=== PATIENT | male | born 1955 | race Two or more races ===

== ENCOUNTER 2017-12-10 11:30 | Outpatient (AMBR) | payer MEDICAID, SELFPAY ==
--- NOTE | 2017-11-26 10:11 | PTNOTE_ITS ---
PT OP Initial Eval Patient Information Visit Reasons: lumbago Medical Diagnosis: M54.41 Treatment Dx #1: LBP Start of Care: 11/26/17 Date of Onset: 3 yrs ago Initial Assessment Subjective Pt is 62 yr old croatian speaking male with Hx of LBP since lifting a floor milagro about 3 yrs ago. Pt reports pain site as the lateral L hip that radiates down the LE about 6/10 with pain meds. He is not working due to pain and is walking with walking stick limited distances from car to building. He had been using a walker that he could walk 1 block with 4 rest stops. He is walking better now after chiropractor care 2 months ago. PMH: DM, B astigmatism Imaging: X-rays Pt goals: to walk further Objective Trunk ArOM: B SB 19 with pain Extension: 20% with pain into glutes and lateral hips Flexion: 10 from floor with increased LBP and posterior thigh pain B rotation: full R SLR ROM: 65 deg with posterior knee neural tension and LBP. L SLR: 55 deg LE strength: DF: 3-/5 B hamstrings: 4/5 Quads 3+/5 Hip abd/add 4-/5 GELY's: lateral thigh pain B SLR: positive B TTP: moderate R paraspinals L2-5, PSIS L<R lumbar paraspinal atrophy B SLR: positive Assessment Pt presents with severe trunk ROM limitations with radiation to B LE's that limits squatting and bending tolerance. Pt has neural tension along sciatic pathway and has weakness along L4-5 myotome with very limited ankle DF ROM and strength along with diminished foot and ankle sensation B. Limited ankle ROM may also contribute to decreased balance reactions and dynamic gait deficits. These findings are consistent with lumbar disc irritation with LE radiculopathy along L4-5 distribution. Pt was taught HEP and given materials. Short Term and Health Care Law Specialist Goals 1. Ind with HEP 2. Improved B quad strength to 4/5 3. Pt will improve ambulatory distance to 1 block with assistive device Treatment Plan Pt has 2 visits authorized and will be scheduled for 2x a week. 1. Manual therapy 2. Therex 3. Modalities as indicated, moist heat, ice, estim, mechanical traction Frequency and Duration 2x a week for 6 weeks Certification Dates: 11/26/17 to 02/24/18 Office Procedures PT Procedures PT Date of Service: 11/26/17 OP PT Eval Mod Complex 30 minutes: Yes
--- NOTE | 2017-11-29 15:01 | PT.ODAYNRPT ---
PT Outpatient Daily Note Date of Service: November 29, 2017 OP Daily Note Visit Reasons: lumbago Outpatient Physical Therapy Treatment Date: 11/29/17 Subjective: About the same as time of evaluation Objective: See F/S for therex Mechanical traction L/S at 20lbs x7' Assessment: Good response to first Rx L/S stab therex and mechanical traction to reduce ssx Plan: Continue per POC Length of Time (minutes) of Treatment: 30 Minutes Office Procedures PT Procedures PT Date of Service: 11/26/17 OP PT Eval Mod Complex 30 minutes: Yes PT Procedures PT Date of Service: 11/29/17 Therapeutic Exercise 30 minutes: Yes
--- NOTE | 2017-12-03 14:21 | PT.ODAYNRPT ---
PT Outpatient Daily Note Date of Service: December 03, 2017 OP Daily Note Visit Reasons: lumbago Outpatient Physical Therapy Treatment Date: 12/03/17 Subjective: Less pain and better sleep since last visit like the nerves in his legs are stretched. Objective: See F/S for therex Mechanical traction L/S at 20lbs x7' Assessment: Good response to L/S stab therex and mechanical traction to reduce ssx Plan: Continue per POC Length of Time (minutes) of Treatment: 30 Minutes Office Procedures PT Procedures PT Date of Service: 11/26/17 OP PT Eval Mod Complex 30 minutes: Yes PT Procedures PT Date of Service: 11/29/17 Therapeutic Exercise 30 minutes: Yes PT Procedures PT Date of Service: 12/03/17 Therapeutic Exercise 30 minutes: Yes
--- NOTE | 2017-12-05 13:40 | PT.ODAYNRPT ---
PT Outpatient Daily Note Date of Service: December 05, 2017 OP Daily Note Visit Reasons: lumbago Outpatient Physical Therapy Treatment Date: 12/05/17 Subjective: Less pain and better sleep since last visit like the nerves in his legs are stretched. Objective: See F/S for therex Mechanical traction L/S at 20lbs x7' Assessment: Good response to L/S stab therex and mechanical traction to reduce ssx Plan: Continue per POC Length of Time (minutes) of Treatment: 30 Minutes Office Procedures PT Procedures PT Date of Service: 11/26/17 OP PT Eval Mod Complex 30 minutes: Yes PT Procedures PT Date of Service: 11/29/17 Therapeutic Exercise 30 minutes: Yes PT Procedures PT Date of Service: 12/03/17 Therapeutic Exercise 30 minutes: Yes PT Procedures PT Date of Service: 12/05/17 Therapeutic Exercise 30 minutes: Yes
--- NOTE | 2017-12-10 12:10 | PT.ODAYNRPT ---
PT Outpatient Daily Note Date of Service: December 10, 2017 OP Daily Note Visit Reasons: [facility] Outpatient Physical Therapy Treatment Date: 12/10/17 Subjective: The L foot drops when he picks up the foot Objective: See F/S for therex Mechanical traction L/S at 20lbs x7' Assessment: Good response to L/S stab therex and mechanical traction to reduce LBP but continued L foot drop limits dynamic mobility. Pt would benefit from continued therapy to work toward ambulatory goals. Plan: Request additional visits 2x a week for 4 weeks. Length of Time (minutes) of Treatment: 30 Minutes Office Procedures PT Procedures PT Date of Service: 11/26/17 OP PT Eval Mod Complex 30 minutes: Yes PT Procedures PT Date of Service: 11/29/17 Therapeutic Exercise 30 minutes: Yes PT Procedures PT Date of Service: 12/03/17 Therapeutic Exercise 30 minutes: Yes PT Procedures PT Date of Service: 12/05/17 Therapeutic Exercise 30 minutes: Yes PT Procedures PT Date of Service: 12/10/17 Therapeutic Exercise 30 minutes: Yes
--- NOTE | 2017-12-10 12:13 | PTNOTE_ITS ---
PT Outpatient Daily Note Date of Service: December 10, 2017 OP Daily Note Visit Reasons: [facility] Outpatient Physical Therapy Treatment Date: 12/10/17 Subjective: The L foot drops when he picks up the foot Objective: See F/S for therex Mechanical traction L/S at 20lbs x7' Assessment: Good response to L/S stab therex and mechanical traction to reduce LBP but continued L foot drop limits dynamic mobility. Pt would benefit from continued therapy to work toward ambulatory goals. Plan: Request additional visits 2x a week for 4 weeks. Length of Time (minutes) of Treatment: 30 Minutes Office Procedures PT Procedures PT Date of Service: 11/26/17 OP PT Eval Mod Complex 30 minutes: Yes PT Procedures PT Date of Service: 11/29/17 Therapeutic Exercise 30 minutes: Yes PT Procedures PT Date of Service: 12/03/17 Therapeutic Exercise 30 minutes: Yes PT Procedures PT Date of Service: 12/05/17 Therapeutic Exercise 30 minutes: Yes PT Procedures PT Date of Service: 12/10/17 Therapeutic Exercise 30 minutes: Yes
== END 2017-12-21 23:59 | disposition home or self-care (01) ==
PROVIDERS: PCP Physician Assistant; Referring Provider Physician Assistant
DX: I10 Essential (primary) hypertension (principal)
CPT/HCPCS: 97110; 97162

== ENCOUNTER 2024-06-04 07:48 | Emergency (ER) | payer MEDICARE, MEDICAID, SELFPAY ==
[2024-06-04] VITALS (7 sets, daily range): BP systolic 93–132; BP diastolic 70–93; PULSE 61–88; RESP 12–18; TEMP 36.4–36.8; O2SAT 95–99; BMI 27.4
--- NOTE | 2024-06-04 08:24 | EKG_ITS ---
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
--- NOTE | 2024-06-04 08:24 | XR_ITS ---
Examination: AP chest single view TECHNIQUE: AP portable upright chest single view Exam date and time: June 04, 2024 at 0828 hours INDICATIONS: Acute chest pain today FINDINGS: Mild prominence of ventricle Mild to moderate elevation right hemidiaphragm No lobar pneumonia or pulmonary edema Prominent osteopenia IMPRESSION: No lobar pneumonia or pulmonary edema
[2024-06-04 08:37] LABS: Basophils % (Auto) 1 % (0-2.5); Eosinophils # (Auto) 0.1 Thou/mm3 (0.0-0.5); Eosinophils % (Auto) 2 % (0-10); Hemoglobin 13.4 g/dL (13.5-16.0); Immature Granulocytes % (Auto) 0 % (0-0); Immature Granulocytes Auto 0.02 Thou/mm3 (0.00-0.00); Lymphocytes # (Auto) 1.6 Thou/mm3 (1.0-4.8); Lymphocytes % (Auto) 27 % (10-50); Mean Corpuscular HGB Conc 33.5 g/dl (31.0-37.0); Mean Corpuscular Hemoglobin 31.5 pg (25.0-35.0); Mean Corpuscular Volume 94 fL (80-100); Monocytes # (Auto) 0.4 Thou/mm3 (0.0-0.8); Monocytes % (Auto) 7 % (0-12); Neutrophils # (Auto) 3.7 Thou/mm3 (1.8-7.7); Neutrophils % (Auto) 63 % (37-80); Nucleated Red Blood Cell % 0 /100 WBC (0); Platelet Count 156 Thou/mm3 (140-440); Red Blood Count 4.26 Miln/mm3 (4.50-5.90); White Blood Count 5.8 Thou/mm3 (3.8-10.6)
--- NOTE | 2024-06-04 08:44 | PD.EDWEAK ---
ED Weakness RME/HPI General Chief complaint: Weakness Stated complaint: Weakness Time Seen by Provider: 06/04/24 08:33 Arrival date/time: 06/04/24 07:48 RME / HPI RME / HPI Narrative: DR. CHIANG MAIN ED EVALUATION: 68 year old male with past medical history significant for intracranial hemorrhage 2021, hypertension, type 2 diabetes, BPH, high cholesterol, on Plavix, renal disease secondary to dehydration presents to the Emergency Department BIBA with complaint of generalized weakness today. Symptoms are mild to moderate. Related Data Home Medications ?Medication ?Instructions ?Recorded ?Confirmed duloxetine 60 mg capsule,delayed 60 mg PO QDAY 06/14/19 01/28/23 release aspirin 81 mg tablet,delayed 81 mg PO QDAY 05/25/21 01/28/23 release gabapentin 300 mg capsule 300 mg PO BID 10/19/21 01/28/23 hydralazine 50 mg tablet 50 mg PO QDAY 10/19/21 01/28/23 tamsulosin 0.4 mg capsule 0.4 mg PO QDAY 10/19/21 01/28/23 finerenone 10 mg tablet (Kerendia) 10 mg PO QDAY 05/12/22 01/28/23 insulin regular human 100 unit/mL See Rx Instructions .Route .COMPLEX 05/12/22 01/28/23 (3 mL) subcutaneous pen (Novolin R FlexPen) insulin glargine 100 unit/mL (3 30 unit subcut HS 05/30/22 01/28/23 mL) subcutaneous pen (Basaglar KwikPen U-100 Insulin) pen needle, diabetic 31 gauge x 05/30/22 05/30/22 3/16 (BD Ultra-Fine Mini Pen Needle) dapagliflozin propanediol 10 mg 10 mg PO QDAY 01/28/23 01/28/23 tablet (Farxiga) sodium polystyrene sulfonate 15 g PO QDAY 01/28/23 01/28/23 vitamin B complex-vitamin C-folic 1 tab PO QDAY 01/28/23 01/28/23 acid 0.8 mg tablet (Nephro-Siobhan) Previous Rx's ?Medication ?Instructions ?Recorded amlodipine 10 mg tablet 10 mg PO QDAY #30 tabs 10/21/21 lisinopril 40 mg tablet 40 mg PO QDAY #30 tabs 10/21/21 ondansetron 4 mg disintegrating 4 mg PO Q8H PRN nausea and 01/18/24 tablet vomiting #10 tabs cephalexin 500 mg capsule 500 mg PO TID #21 caps 06/04/24 oseltamivir 75 mg capsule (Tamiflu) 75 mg PO BID 5 days #10 caps 06/04/24 Allergies Allergy/AdvReac Type Severity Reaction Status Date / Time No Known Allergies Allergy Verified 06/04/24 08:11 Review of Systems Review of Systems Systems Reviewed: All systems reviewed, normal except as documented Narrative Review of Systems: GEN: No fever, no chills, no weight loss EYES: No discharge, no visual changes, no pain HEENT: No ear pain, no congestion, no sore throat PULM: No shortness of breath, no cough, no congestion CV: No chest pain, no dyspnea on exertion, no palpitations GI: No nausea, no vomiting, no diarrhea, no pain, no constipation : No frequency, no urgency and no dysuria MUSC/SKEL: No joint pain, no back pain SKIN: No rash PSYCH: No hallucinations, no depression HEME/LYMPH: No easy bleeding or bruising tendencies NEURO: + generalized weakness, no headache Past Medical History Past Medical History NEUROLOGIC: Positive Neurological Disorders and Cerebrovascular Accident CARDIAC: Positive Cardiac Disorders, Hypercholesterolemia and Hypertension RESPIRATORY: Positive Sleep Apnea GASTROINTESTINAL: Positive Gastrointestinal Disorders GENITOURINARY: Positive Genitourinary Disorders, Renal Disease and Benign Prostatic Hyperplasia MUSCULOSKELETAL: Positive Musculoskeletal Disorders and Fractures ENDOCRINE: Positive Endocrine Disorders and Diabetes Mellitus Type 2 OTHER HISTORY: Positive Hospitalization Family History FAMILY HISTORY: Positive Family Cancer Social History SMOKING STATUS: Never smoker SUBSTANCE USE: does not use ALCOHOL: Never ED Exam Narrative Physical exam: GENERAL APPEARANCE: alert and oriented x 4, well-developed, well-nourished, no acute distress VITALS: All vitals were reviewed and the pulse ox is 97% on room air, which is normal according to my interpretation. HEENT: Normocephalic, atraumatic; pupils equal, round, reactive to light; EOMI; mucous membranes pink, moist; oropharynx clear NECK: Supple LUNGS: CTABL; no wheezes, no rales, no rhonchi HEART: Regular rate, regular rhythm; normal S1, S2; no murmurs ABDOMEN: non distended; normal BS; soft, no tenderness, no guarding, no rebound; no masses, no organomegaly, no hernia BACK: no CVA tenderness EXTREMITIES: atraumatic; no edema NEUROLOGIC: awake; alert and oriented x4; cranial nerves II-XII grossly intact; no focal sensory or motor deficits PSYCHIATRIC: appropriate mood and affect SKIN: warm, dry, normal color; no rashes Course Quality Measures none Orders Category Date Time Status Bedside Blood Glucose NOW Care 06/04/24 08:25 Completed Bedside COVID-19 Antigen Test NOW Care 06/04/24 09:18 Completed Bedside Influenza A&B Antigen Test NOW Care 06/04/24 09:18 Completed Education Rn NOW Care 06/04/24 08:24 Completed EKG (ED ONLY) *Do not use* NOW Care 06/04/24 08:24 Completed EKG (ED Only) Stat Exams 06/04/24 08:24 Draft XR chest 1V portable Stat Exams 06/04/24 08:24 Completed B-Type Natriuretic Peptide Stat Lab 06/04/24 08:25 Completed CBC Stat Lab 06/04/24 08:25 Completed Comprehensive Metabolic Panel Stat Lab 06/04/24 08:25 Completed Lipase Stat Lab 06/04/24 08:25 Completed Magnesium Stat Lab 06/04/24 08:25 Completed Partial Thromboplastin Time Stat Lab 06/04/24 08:25 Completed Prothrombin Time with INR Stat Lab 06/04/24 08:25 Completed Troponin I Stat Lab 06/04/24 08:25 Completed UA, C/S IF [Urinalysis, C/S if Indicated] Stat Lab 06/04/24 11:22 Completed Urine Culture Stat Lab 06/04/24 11:22 Received Oseltamivir [Tamiflu] Med 06/04/24 12:38 Discontinued 75 mg PO X1 ONE Sodium Chloride 0.9% 1000 ml [Ns] 1,000 ml Med 06/04/24 09:19 Discontinued IV 999 mls/hr Trimethoprim/Sulfa 160/800 Ds [Bactrim Ds] Med 06/04/24 12:32 Discontinued 1 tab PO X1 ONE cefTRIAXone/D5w 1gm IV premix [Rocephin/D5w 1gm IV Med 06/04/24 13:33 Discontinued premix] 50 ml IV X1 cephALEXin [Keflex] Med 06/04/24 12:39 Discontinued 500 mg PO X1 ONE Vital Signs Vital signs: Vital Signs Temperature 98.3 F 06/04/24 07:51 Pulse Rate 88 06/04/24 07:51 Respiratory Rate 18 06/04/24 07:51 Blood Pressure 130/93 H 06/04/24 07:51 Pulse Oximetry (%) 98 06/04/24 07:51 Oxygen Delivery Method Room Air 06/04/24 07:51 Weakness MDM Narrative MDM Narrative:: IMasha, am scribing for and in the presence of Dr. Chiang. Patient data External records reviewed:: [facility] previous records (Reviewed last ED visit dated 02/10/24 discharged with the following: Atypical chest pain) and EMS form Clinical information provided by:: patient and EMS Social determinants that could affect healthcare access:: none Patient has the following chronic illnesses:: Intracranial hemorrhage 2021, hypertension, type 2 diabetes, BPH, high cholesterol, on Plavix, renal disease secondary to dehydration How is presenting disease/condition affected by chronic disease/condition?: exacerbated by Evaluation data The following diagnostics were reviewed and interpreted by me:: lab results, radiology exam(s) and EKG tracing(s) (EKG#1: EKG at 0849 hours. Interpreted by me: sinus rhythm, rate 79, left axis deviation, incomplete right bundle branch block) Lab and/or radiology exams considered but not ordered:: none Interpretation Summary: Procedure(s): XR chest 1V portable Accession Number(s): [id number] cc: Karlo Allen MD; Sonia Chiang MD~ Examination: AP chest single view TECHNIQUE: AP portable upright chest single view Exam date and time: June 04, 2024 at 0828 hours INDICATIONS: Acute chest pain today FINDINGS: Mild prominence of ventricle Mild to moderate elevation right hemidiaphragm No lobar pneumonia or pulmonary edema Prominent osteopenia IMPRESSION: No lobar pneumonia or pulmonary edema Dictated By: Karlo Allen MD Medications / Prescriptions Medications or Prescriptions considered but not ordered:: none Medication administrations:: Medication Administration History Discontinued Medications Cephalexin HCl (Cephalexin 250 Mg Capsule) 500 mg PO X1 ONE Stop: 06/04/24 12:40 Last Admin: 06/04/24 13:33 Dose: Not Given Documented By: TANYA Non-Admin Reason: Patient Refused Sodium Chloride (Ns) 1,000 mls @ 999 mls/hr IV .Q1H1M ONE Stop: 06/04/24 10:19 Last Infusion: 06/04/24 11:33 Dose: Infused Documented By: Admin: 06/04/24 10:15 Dose: 999 mls/hr Documented By: TANYA Ceftriaxone Sodium/Dextrose (Rocephin/D5w 1gm Iv Premix) 50 mls @ 100 mls/hr IV X1 ONE Stop: 06/04/24 14:02 Last Infusion: 06/04/24 14:15 Dose: Infused Documented By: Admin: 06/04/24 13:42 Dose: 100 mls/hr Documented By: TANYA Oseltamivir Phosphate (Oseltamivir 75 Mg Capsule) 75 mg PO X1 ONE Stop: 06/04/24 12:39 Last Admin: 06/04/24 13:33 Dose: Not Given Documented By: TANYA Non-Admin Reason: Patient Refused Trimethoprim/Sulfamethoxazole (Trimethoprim/Sulfa 160/800 Ds Tablet) 1 tab PO X1 ONE Stop: 06/04/24 12:33 Last Admin: 06/04/24 13:04 Dose: Not Given Documented By: TANYA Non-Admin Reason: Cancelled by Provider see above Consultations Consultation(s) initiated? (list below): No Diagnosis Weakness Differential Diagnosis: acute myocardial infarction, anemia, dehydration and other (renal disease, electrolyte imbalance) Most likely diagnosis given after review of the tests above:: UTI Influenza A Admission Indicated Admission indicated?: not indicated Admission Request Was there a request for admission?: No Disposition Plan Disposition Plan: Discharge Discharge Attestation Discharge Attestation: The patient and all family members were given an opportunity to ask questions and understood the discharge instructions. Discharge instructions specifically effects, indications for sooner follow up or return to the emergency department, and the expected course of current diagnosis. Patient condition: Stable Discharge Plan Plan Patient Disposition: HOME (Self Care) Patient condition on transfer: Stable Prescriptions/Referrals Prescriptions/Med Rec: New cephalexin 500 mg capsule 500 mg PO TID Qty: 21 0RF oseltamivir [Tamiflu] 75 mg capsule 75 mg PO BID 5 Days Qty: 10 0RF No Action duloxetine 60 mg Capsule,Delayed Release(Dr/Ec) 60 mg PO QDAY aspirin 81 mg Tablet,Delayed Release (Dr/Ec) 81 mg PO QDAY tamsulosin 0.4 mg capsule 0.4 mg PO QDAY gabapentin 300 mg capsule 300 mg PO BID hydralazine 50 mg tablet 50 mg PO QDAY amlodipine 10 mg tablet 10 mg PO QDAY Qty: 30 0RF lisinopril 40 mg tablet 40 mg PO QDAY Qty: 30 0RF Nephro-Siobhan 0.8 mg tablet 1 tab PO QDAY Patient Comments: TOME MARINA TABLETA TODOS LOS D Farxiga 10 mg tablet 10 mg PO QDAY sodium polystyrene sulfonate Powder 15 g PO QDAY Patient Comments: TOME 15 GM POR V A ORAL TODOS LOS D ondansetron 4 mg tablet,disintegrating 4 mg PO Q8H PRN (Reason: nausea and vomiting) Qty: 10 0RF Kerendia 10 mg Tablet 10 mg PO QDAY Novolin R FlexPen 100 unit/mL (3 mL) Insulin Pen See Rx Instructions .ROUTE .COMPLEX Rx Instructions: per sliding scale. insulin glargine [Basaglar KwikPen U-100 Insulin] 100 unit/mL (3 mL) insulin pen 30 unit SUBCUT HS Patient Comments: INJECTE 30 UNIDADES SUBCUTANEOUS DIARIO [employer] (DME) pen needle, diabetic [BD Ultra-Fine Mini Pen Needle] 31 gauge x 3/16 needle Patient Comments: USE 3 TIMES A DAY Referrals: Leesa Leyva, HORIZONTAL [employer]ING M[employer] OPERATOR [Primary Care Provider] - In 1 week Problem List Clinical Impression: UTI (urinary tract infection), Influenza A Patient/Caregiver Discharge Instructions Education Materials: Urinary Tract Infections in Men, ED Influenza (Adult) Print Language: Irish Stand Alone Forms: Julianna Award Info., Patient Portal Info Letter
[2024-06-04 08:52] LABS: Partial Thromboplastin Time 26.8 Seconds (22.0-36.0); Prothrombin Time 10.7 Seconds (9.0-12.2)
[2024-06-04 08:55] LABS: B-Type Natriuretic Peptide < 20 pg/mL (0-100)
[2024-06-04 08:58] LABS: Alanine Aminotransferase 19 U/L (10-49); Albumin/Globulin Ratio 1.4 (1.2-2.2); Alkaline Phosphatase 68 U/L (46-116); Anion Gap 3 (7-16); Aspartate Amino Transferase 21 U/L (0-34); BUN/Creatinine Ratio 19 Ratio (12-20); Bilirubin,Total 0.4 mg/dL (0.3-1.2); Blood Urea Nitrogen 47 mg/dL (9-23); Calcium 9.2 mg/dL (8.3-10.6); Calcium (Corrected) 9.2 mg/dL (8.5-10.1); Carbon Dioxide 23.3 mMol/L (20.0-31.0); Chloride 112 mMol/L (98-107); Creatinine (Component) 2.5 mg/dL (0.6-1.3); Estimated Creatinine Clearance 28.4 mL/min (>60); Globulin 2.8 gm/dL (2.3-3.5); Glucose 255 mg/dL (74-106); Lipase 53 U/L (12-53); Magnesium 2.6 mg/dL (1.6-2.6); Osmolality,Calculated 296 (275-295); Potassium 5.2 mMol/L (3.4-5.1); Sodium 138 mMol/L (136-145); Total Protein 6.8 gm/dL (5.7-8.2); Troponin I < 0.020 ng/mL (0.0-0.045); eGFR 28 See Note
[2024-06-04] MEDS: SODIUM CHLORIDE 0.9% 1000 ML 1,000 ML 999 ML IV (10:15)
[2024-06-04 11:26] LABS: Collection Type, Urine Clean Catch
[2024-06-04 11:56] LABS: Bilirubin,Urine Negative (Negative); Blood,Urine 1+ (Negative); Budding Yeast,Urine Present; Color,Urine Yellow (Lt Yel-Yel); Glucose, Urine 4+ (Negative); Hyaline Casts,Urine < 1 /hpf (0-1); Ketones,Urine Negative (Negative); Leukocyte Esterase,Urine Positive (Negative); Nitrite,Urine Negative (Negative); PH,Urine 5.5 (5.0-7.0); Protein,Urine 2+ (Neg - Trace); RBC,Urine 8 /hpf (0-3); Specific Gravity,Urine 1.015 (1.001-1.035); Squamous Epithelial Cell,Urine 1 /hpf (0-5); Urobilinogen,Urine Negative mg/dL (0.0-1.0); WBC,Urine 454 /hpf (0-5)
[2024-06-04 11:57] LABS: Clarity,Urine Turbid (Clear/Hazy); Culture Indicated,Urine Yes
[2024-06-04] MEDS: cefTRIAXone/D5w 1gm IV premix 50 ML IV (13:42)
== END 2024-06-04 14:56 | disposition home or self-care (01) ==
PROVIDERS: Emergency Provider Emergency Medicine; PCP Nurse Practitioner Family
DX: N39.0 Urinary tract infection, site not specified (principal); J10.1 Influenza due to other identified influenza virus with other respiratory manifestations; E11.9 Type 2 diabetes mellitus without complications; I10 Essential (primary) hypertension; N40.0 Benign prostatic hyperplasia without lower urinary tract symptoms
CPT/HCPCS: 36415; 71045; 80053; 81001; 83690; 83735; 83880; 84484; 85025; 85610; 85730; 87086; 87400; 87811; 93005; 96361; 96365; 99284; J0696; J7030

== ENCOUNTER 2024-09-25 08:28 | Emergency (ER) | payer MEDICARE, MEDICAID, SELFPAY ==
[2024-09-25 08:30] VITALS: BP 156/81; PULSE 87; RESP 19; TEMP 36.7; O2SAT 95
[2024-09-25 08:31] VITALS: BMI 29.1
[2024-09-25 08:38] VITALS: BMI 24.3
--- NOTE | 2024-09-25 08:38 | PC.NURSE ---
PER MEDIC, STATED PT NOT ACTING RIGHT. PT ALERT/ORIENTED AND C/O FEELING TIRED AFTER GETTING HOME FROM [place] YESTERDAY.
--- NOTE | 2024-09-25 08:44 | EKG_ITS ---
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
--- NOTE | 2024-09-25 08:44 | PD.EDADULT ---
ED General RME/HPI General Chief complaint: General Adult/Misc Complain Stated complaint: TIRED Time Seen by Provider: 09/25/24 08:39 Arrival date/time: 09/25/24 08:28 RME / HPI RME / HPI narrative: DR. KENDRICK MAIN ED EVALUATION: 69 year old male presents to the Emergency Department [facility] with complaint of altered mental status per . Per EMS, states that he was not acting right and not answering her right; insisted the patient come in according to EMS. Patient himself states he feels tired but otherwise he is good. Per EMS, patient is oriented, responding well, and answering all questions to them. Per EMS, BP was 170/84 and blood glucose was 232. 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 Hypertension and hyperlipidemia. Social Hx: No tobacco, alcohol, or substance use. Related Data Home Medications ?Medication ?Instructions ?Recorded ?Confirmed duloxetine 60 mg capsule,delayed 60 mg PO QDAY 06/14/19 01/28/23 release aspirin 81 mg tablet,delayed 81 mg PO QDAY 05/25/21 01/28/23 release gabapentin 300 mg capsule 300 mg PO BID 10/19/21 01/28/23 hydralazine 50 mg tablet 50 mg PO QDAY 10/19/21 01/28/23 tamsulosin 0.4 mg capsule 0.4 mg PO QDAY 10/19/21 01/28/23 finerenone 10 mg tablet (Kerendia) 10 mg PO QDAY 05/12/22 01/28/23 insulin regular human 100 unit/mL See Rx Instructions .Route .COMPLEX 05/12/22 01/28/23 (3 mL) subcutaneous pen (Novolin R FlexPen) insulin glargine 100 unit/mL (3 30 unit subcut HS 05/30/22 01/28/23 mL) subcutaneous pen (Basaglar KwikPen U-100 Insulin) pen needle, diabetic 31 gauge x 05/30/22 05/30/2207/06 (BD Ultra-Fine Mini Pen Needle) dapagliflozin propanediol 10 mg 10 mg PO QDAY 01/28/23 01/28/23 tablet (Farxiga) sodium polystyrene sulfonate 15 g PO QDAY 01/28/23 01/28/23 vitamin B complex-vitamin C-folic 1 tab PO QDAY 01/28/23 01/28/23 acid 0.8 mg tablet (Nephro-Siobhan) Previous Rx's ?Medication ?Instructions ?Recorded amlodipine 10 mg tablet 10 mg PO QDAY #30 tabs 10/21/21 lisinopril 40 mg tablet 40 mg PO QDAY #30 tabs 10/21/21 ondansetron 4 mg disintegrating 4 mg PO Q8H PRN nausea and 01/18/24 tablet vomiting #10 tabs cephalexin 500 mg capsule 500 mg PO TID #21 caps 06/04/24 Allergies Allergy/AdvReac Type Severity Reaction Status Date / Time No Known Allergies Allergy Verified 09/25/24 08:47 Review of Systems Review of Systems Systems Reviewed: All systems reviewed, normal except as documented Past Medical History Past Medical History NEUROLOGIC: Positive Neurological Disorders and Cerebrovascular Accident (LEFT SIDE WEAKNESS) CARDIAC: Positive Cardiac Disorders, Myocardial Infarction, Hypercholesterolemia and Hypertension RESPIRATORY: Positive Sleep Apnea GASTROINTESTINAL: Positive Gastrointestinal Disorders GENITOURINARY: Positive Genitourinary Disorders, Renal Disease and Benign Prostatic Hyperplasia MUSCULOSKELETAL: Positive Musculoskeletal Disorders and Fractures ENDOCRINE: Positive Endocrine Disorders and Diabetes Mellitus Type 2 OTHER HISTORY: Positive Hospitalization and Anesthesia Reactions Family History FAMILY HISTORY: Positive Family Cancer Social History SMOKING STATUS: Never smoker SUBSTANCE USE: does not use ALCOHOL: Never ED Exam Narrative Physical exam: GENERAL APPEARANCE: AxOx4, generally well-appearing, no acute distress. HEENT: NC, AT. MMM. EOMI, clear conjunctiva, oropharynx clear. NECK: Supple without lymphadenopathy. No stiffness or restricted ROM. HEART: Normal rate and regular rhythm, normal S1/S1, no m/r/g LUNGS: CTAB, moving air well. No crackles or wheezes are heard. ABDOMEN: Soft, nontender, nondistended with good bowel sounds heard. BACK: No midline C/T/L spine pain or deformity, No CVAT, no obvious deformity. EXTREMITIES: Without cyanosis, clubbing or edema. MUSCULOSKELETAL: FROM of all major joints, no chest tenderness NEUROLOGICAL: Grossly nonfocal. Alert and oriented, moving all 4 extremities. Mild slurred speech from old stroke. Skin: Warm and dry without any rash. Course Quality Measures none Orders Category Date Time Status EKG (ED ONLY) *Do not use* NOW Care 09/25/24 08:[address] head/brain wo con Stat Exams 09/25/24 08:44 Completed EKG (ED Only) Stat Exams 09/25/24 08:44 Draft CBC Stat Lab 09/25/24 09:08 Completed CMP [Comprehensive Metabolic Panel] Stat Lab 09/25/24 09:08 Completed Urinalysis Stat Lab 09/25/24 10:29 Completed Vital Signs Vital signs: Vital Signs Temperature 98.1 F 09/25/24 08:30 Pulse Rate 87 09/25/24 08:30 Respiratory Rate 19 09/25/24 08:30 Blood Pressure 156/81 H 09/25/24 08:30 Pulse Oximetry (%) 95 09/25/24 08:30 Oxygen Delivery Method CPAP 09/25/24 08:30 Discharge Plan Plan Patient Disposition: HOME (Self Care) Prescriptions/Referrals Prescriptions/Med Rec: No Action duloxetine 60 mg Capsule,Delayed Release(Dr/Ec) 60 mg PO QDAY aspirin 81 mg Tablet,Delayed Release (Dr/Ec) 81 mg PO QDAY tamsulosin 0.4 mg capsule 0.4 mg PO QDAY gabapentin 300 mg capsule 300 mg PO BID hydralazine 50 mg tablet 50 mg PO QDAY amlodipine 10 mg tablet 10 mg PO QDAY Qty: 30 0RF lisinopril 40 mg tablet 40 mg PO QDAY Qty: 30 0RF Nephro-Siobhan 0.8 mg tablet 1 tab PO QDAY Patient Comments: TOME MAGDIEL TABLETA TODOS LOS D Farxiga 10 mg tablet 10 mg PO QDAY sodium polystyrene sulfonate Powder 15 g PO QDAY Patient Comments: TOME 15 GM POR V A ORAL TODOS LOS D ondansetron 4 mg tablet,disintegrating 4 mg PO Q8H PRN (Reason: nausea and vomiting) Qty: 10 0RF cephalexin 500 mg capsule 500 mg PO TID Qty: 21 0RF Kerendia 10 mg Tablet 10 mg PO QDAY Novolin R FlexPen 100 unit/mL (3 mL) Insulin Pen See Rx Instructions .ROUTE .COMPLEX Rx Instructions: per sliding scale. insulin glargine [Basaglar KwikPen U-100 Insulin] 100 unit/mL (3 mL) insulin pen 30 unit SUBCUT HS Patient Comments: INJECTE 30 UNIDADES SUBCUTANEOUS DIARIO AL ACOSTAR (DME) pen needle, diabetic [BD Ultra-Fine Mini Pen Needle] 31 gauge x 3/16 needle Patient Comments: USE 3 TIMES A DAY Referrals: Leesa Leyva NP [Primary Care Provider] - In 1 week Problem List Clinical Impression: Dehydration, Chronic renal disease Patient/Caregiver Discharge Instructions Education Materials: ED Chronic Kidney Disease (CKD), ED Dehydration (Adult) Additional Instructions: Acuda a magdiel linda de seguimiento con hill m?dico de cabecera en brianne o dos d?as para magdiel nueva evaluaci?n. Puede regresar a urgencias antes si los s?ntomas empeoran o si nota alg?n problema nuevo que le preocupe. Print Language: Citizen Of [place] Stand Alone Forms: Julianna Award Info., Patient Portal Info Letter MDM Narrative MDM hospital course: Masha Angeles am scribing for and in the presence of Dr. Kendrick. 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 Hypertension and hyperlipidemia. EKG Interpretation EKG #1: Date/time of EK09/25/24 0847 hours EKG interpretation: sinus rhythm, rate 80, normal intervals, normal axis, no acute ST-T wave changes. Imaging Radiology reports / interpretation(s): Procedure(s): CT head/brain wo con Accession Number(s): [id number] cc: Lisandro Kendrick MD; Karlo Allen MD; Leesa Leyva NP~ Examination: CT brain head without contrast. 2-D sagittal coronal reconstructions Date and time of exam:September 25, 2024 0853 hours INDICATIONS: Altered mental status today COMPARISON: 01/18/2024 CTDI: vol (mGy):53.8 DLP: (mGycm):1097 Technique: Multiple CT axial sections of the brain have been obtained, 5 mm slice thickness. Contrast has not been administered. 2-D sagittal, coronal reconstructions have been obtained Low dose protocols were performed. One or more of the following dose reduction techniques were used; automated exposure control, adjustment of the mA and/or KV according to patient size, use of iterative reconstruction technique. Findings: No significant ventricular enlargement. Old infarct left basal ganglia Intra-axial or extra-axial hemorrhage density is not seen. No mass effect or midline shift Basal cisterns are not remarkable. Fourth ventricle is midline. Cranial vault intact. Impression: Negative for acute hemorrhage, mass effect or midline shift Advise clinical correlation follow-up accordingly Dictated By: Karlo Allen MD Diagnosis Differential diagnosis: TIA, CVA, dehydration Most likely dx, and/or detailed dx discussion: Dehydration Chronic renal disease Dispositon Disposition: Discharge Home
[2024-09-25 09:03] VITALS: BP 128/74; PULSE 78; RESP 14; TEMP 36.7; O2SAT 97; BMI 26.4
[2024-09-25 09:26] LABS: Basophils # (Auto) 0.1 Thou/mm3 (0.0-0.2); Basophils % (Auto) 1 % (0-2.5); Eosinophils # (Auto) 0.2 Thou/mm3 (0.0-0.5); Eosinophils % (Auto) 2 % (0-10); Hematocrit 40.1 % (41.0-53.0); Hemoglobin 13.7 g/dL (13.5-16.0); Immature Granulocytes % (Auto) 0 % (0-0); Immature Granulocytes Auto 0.04 Thou/mm3 (0.00-0.00); Lymphocytes # (Auto) 1.8 Thou/mm3 (1.0-4.8); Lymphocytes % (Auto) 19 % (10-50); Mean Corpuscular HGB Conc 34.2 g/dl (31.0-37.0); Mean Corpuscular Hemoglobin 31.5 pg (25.0-35.0); Mean Corpuscular Volume 92 fL (80-100); Monocytes # (Auto) 0.6 Thou/mm3 (0.0-0.8); Monocytes % (Auto) 6 % (0-12); Neutrophils # (Auto) 6.9 Thou/mm3 (1.8-7.7); Neutrophils % (Auto) 73 % (37-80); Nucleated Red Blood Cell % 0 /100 WBC (0); Platelet Count 146 Thou/mm3 (140-440); RDW Standard Deviation 44.5 fL (35.1-43.9); Red Blood Count 4.35 Miln/mm3 (4.50-5.90); White Blood Count 9.6 Thou/mm3 (3.8-10.6)
[2024-09-25 09:37] LABS: Alanine Aminotransferase 32 U/L (10-49); Albumin, Serum 3.7 gm/dL (3.4-4.8); Albumin/Globulin Ratio 1.6 (1.2-2.2); Alkaline Phosphatase 68 U/L (46-116); Anion Gap 6 (7-16); Aspartate Amino Transferase 25 U/L (0-34); BUN/Creatinine Ratio 16 Ratio (12-20); Bilirubin,Total 0.3 mg/dL (0.3-1.2); Blood Urea Nitrogen 46 mg/dL (9-23); Calcium (Corrected) 9.2 mg/dL (8.5-10.1); Carbon Dioxide 27.6 mMol/L (20.0-31.0); Chloride 108 mMol/L (98-107); Creatinine (Component) 2.9 mg/dL (0.6-1.3); Estimated Creatinine Clearance 22.3 mL/min (>60); Globulin 2.3 gm/dL (2.3-3.5); Glucose 221 mg/dL (74-106); Osmolality,Calculated 302 (275-295); Potassium 5.4 mMol/L (3.4-5.1); Sodium 142 mMol/L (136-145); eGFR 23 See Note
--- NOTE | 2024-09-25 10:15 | PC.NURSE ---
PT HAD SMALL BM; PT'S BM LOOSE IN BROWN AND LOOSE. PT GIVEN PERINEAL CARE WITH WARM BATH CLOTHS & PLACED IN NEW CLEAN BRIEFS AT THIS TIME.
[2024-09-25 10:39] LABS: Collection Type, Urine Clean Catch; RBC,Urine 0 /hpf (0-3); Squamous Epithelial Cell,Urine 0 /hpf (0-5); WBC,Urine 0 /hpf (0-5)
[2024-09-25 10:55] LABS: Bilirubin,Urine Negative (Negative); Blood,Urine 1+ (Negative); Clarity,Urine Clear (Clear/Hazy); Color,Urine Lt Yellow (Lt Yel-Yel); Glucose, Urine 3+ (Negative); Ketones,Urine Negative (Negative); Leukocyte Esterase,Urine Negative (Negative); Nitrite,Urine Negative (Negative); Protein,Urine 3+ (Neg - Trace); Specific Gravity,Urine 1.015 (1.001-1.035); Urobilinogen,Urine 0.2 mg/dL (0.0-1.0)
[2024-09-25 11:00] LABS: Bacteria,Urine Rare
[2024-09-25 11:13] VITALS: BP 167/76; PULSE 76; RESP 12; TEMP 36.3; O2SAT 95
== END 2024-09-25 11:50 | disposition home or self-care (01) ==
PROVIDERS: Emergency Provider Emergency Medicine; PCP Nurse Practitioner Family
DX: E86.0 Dehydration (principal); I44.4 Left anterior fascicular block; E78.5 Hyperlipidemia, unspecified; I12.9 Hypertensive chronic kidney disease with stage 1 through stage 4 chronic kidney disease, or unspecified chronic kidney disease; N18.9 Chronic kidney disease, unspecified; I69.328 Other speech and language deficits following cerebral infarction; I69.354 Hemiplegia and hemiparesis following cerebral infarction affecting left non-dominant side
CPT/HCPCS: 51701; 36415; 70450; 80053; 81001; 85025; 93005; 99284

== ENCOUNTER 2024-12-14 18:42 | Observation (INO) | payer MEDICARE, MEDICAID, SELFPAY ==
[2024-12-14 18:45] VITALS: BMI 26.6
--- NOTE | 2024-12-14 18:57 | PD.EDEYE ---
ED Eye Problem RME/HPI General Chief complaint: Eye Problems Stated complaint: SEEING SPIDER WEBS IN VISION UPON WAKING TODAY Arrival date/time: 12/14/24 18:42 RME / HPI RME / HPI Narrative: Dr. Lennon?s Main ED Evaluation: 69yo male with a history of CVA with residual left-sided deficits, HTN, HLD presents to the ED for a chief complaint of vision changes. Patient states he started seeing spider-webs this morning when he woke up. LKWT 2100 last night. Patient denies any new weakness, speech difficulties, or any other associated symptoms. Related Data Home Medications ?Medication ?Instructions ?Recorded ?Confirmed duloxetine 60 mg capsule,delayed 60 mg PO QDAY 06/14/19 01/28/23 release aspirin 81 mg tablet,delayed 81 mg PO QDAY 05/25/21 01/28/23 release gabapentin 300 mg capsule 300 mg PO BID 10/19/21 01/28/23 hydralazine 50 mg tablet 50 mg PO QDAY 10/19/21 01/28/23 tamsulosin 0.4 mg capsule 0.4 mg PO QDAY 10/19/21 01/28/23 finerenone 10 mg tablet (Kerendia) 10 mg PO QDAY 05/12/22 01/28/23 insulin regular human 100 unit/mL See Rx Instructions .Route .COMPLEX 05/12/22 01/28/23 (3 mL) subcutaneous pen (Novolin R FlexPen) insulin glargine 100 unit/mL (3 30 unit subcut HS 05/30/22 01/28/23 mL) subcutaneous pen (Basaglar KwikPen U-100 Insulin) pen needle, diabetic 31 gauge x 05/30/22 05/30/22 3/16 (BD Ultra-Fine Mini Pen Needle) dapagliflozin propanediol 10 mg 10 mg PO QDAY 01/28/23 01/28/23 tablet (Farxiga) sodium polystyrene sulfonate 15 g PO QDAY 01/28/23 01/28/23 vitamin B complex-vitamin C-folic 1 tab PO QDAY 01/28/23 01/28/23 acid 0.8 mg tablet (Nephro-Siobhan) Previous Rx's ?Medication ?Instructions ?Recorded amlodipine 10 mg tablet 10 mg PO QDAY #30 tabs 10/21/21 lisinopril 40 mg tablet 40 mg PO QDAY #30 tabs 10/21/21 ondansetron 4 mg disintegrating 4 mg PO Q8H PRN nausea and 01/18/24 tablet vomiting #10 tabs cephalexin 500 mg capsule 500 mg PO TID #21 caps 06/04/24 Allergies Allergy/AdvReac Type Severity Reaction Status Date / Time No Known Allergies Allergy Verified 12/14/24 18:49 Review of Systems Review of Systems Systems Reviewed: All systems reviewed, normal except as documented Past Medical History Past Medical History NEUROLOGIC: Positive Neurological Disorders and Cerebrovascular Accident (LEFT SIDE WEAKNESS); Negative Transient Ischemic Attacks (TIA), Dementia, Alzheimer's Disease, Parkinson's Disease, Brain Tumor, Meningitis, Seizures, Epilepsy, Multiple Sclerosis, Cerebral Palsy, Amyotrophic Lateral Sclerosis (ALS/Dian Gehrig's), Guillain-[place] Syndrome, Spina Bifida, Paralysis, Peripheral Neuropathy, Holland's Palsy, Subdural Hematoma, Migraine, Head Trauma, Spinal Cord Injury or Traumatic Brain Injury CARDIAC: Positive Cardiac Disorders, Myocardial Infarction, Hypercholesterolemia and Hypertension; Negative Cardiac Arrhythmia, Atrial Fibrillation, Angina, Heart Murmur, Coronary Artery Disease, Atherosclerotic Heart Disease, Peripheral Vascular Disease, Aneurysm, Congestive Heart Failure, Congenital Heart Disease, Valvular Heart Disease, Rheumatic Fever, Cardiomyopathy, Edema, Pericarditis, Cellulitis, Deep Vein Thrombosis, Hypotension or Varicose Veins RESPIRATORY: Positive Sleep Apnea; Negative Chronic Obstructive Pulmonary Disease (COPD), Asthma, Bronchitis, Emphysema, Pneumonia, Pulmonary Fibrosis, Cystic Fibrosis, Tuberculosis, Pulmonary Embolism or Pulmonary Edema GASTROINTESTINAL: Positive Gastrointestinal Disorders; Negative Hepatitis, Cirrhosis, Pancreatitis, Celiac Disease, Gall Bladder Disease, Gastrointestinal Bleed, Esophageal Varices, Clarke's Esophagus, Colitis, Ulcerative Colitis, Diverticulitis, Diverticulosis, Ulcer, Colorectal Cancer, Irritable Bowel, Crohn's Disease, Obstructive Bowel, Hiatal Hernia, Hemorrhoids, Gastroesophageal Reflux Disease or Obesity GENITOURINARY: Positive Genitourinary Disorders, Renal Disease and Benign Prostatic Hyperplasia; Negative Kidney Stones, Polycystic Kidney Disease, Neurogenic Bladder, Inguinal Hernia, Dialysis or Prostate Cancer REPRODUCTIVE: Negative Breast Cancer or Testicular Cancer MUSCULOSKELETAL: Positive Musculoskeletal Disorders and Fractures; Negative Muscular Dystrophy, Myasthenia Gravis, Marfan's Syndrome, Bone Cancer, Arthritis, Rheumatoid Arthritis, Osteoporosis, Degenerative Disk Disease, Gout, Scoliosis, Carpal Tunnel Syndrome, Fibromyalgia, Degenerative Joint Disease, Osteomyelitis or Poliovirus ENT: Negative Cataracts, Glaucoma, Blind, Retinal Detachment, Macular Degeneration, Ear Infection, Deafness, Head Trauma or Eye Prosthesis ENDOCRINE: Positive Endocrine Disorders and Diabetes Mellitus Type 2; Negative Diabetes Mellitus Type 1, Hypoglycemia, Silviano's Syndrome, Tereso's Disease, Hyperthyroidism, Hypothyroidism, Parathyroid Disease, Pituitary Disease, Systemic Lupus Erythematosus, Syndrome of Inappropriate Antidiuretic Hormone (SIADH), Adrenal Disease or Graves' Disease HEMATOLOGIC: Negative Blood Disorders, Anemia, Leukemia, Hemophilia, Thalassemia, Sickle Cell Disease or Clotting Problems PSYCHO/SOCIAL: Negative Psychiatric Problems, Schizophrenia, Recreational Drug Use, Bipolar Disorder, Depression, Anxiety, Behavior Problems, Self-Mutilation, Attention Deficit Disorder, Attention Deficit Hyperactivity Disorder, Depression or Eating Disorder OTHER HISTORY: Positive Hospitalization and Anesthesia Reactions; Negative Autoimmune Disease, Down Syndrome, Autism, Developmental Delay, Shingles, Falls, Blood Transfusions, Blood Transfusion Reaction, Organ Transplant, Chemotherapy, Radiation Therapy, Hyperbaric Therapy, MRSA, VRSA, Vancomycin-Resistant Enterococci, Human Immunodeficiency Virus (HIV), Chicken Pox, Measles, Mumps, Rubella (Macedonian Measles), Pertussis, Clostridium Difficile, Cancer, Breast Cancer, Cervical Cancer, Colorectal Cancer, Lung Cancer, Prostate Cancer or Testicular Cancer Family History FAMILY HISTORY: Positive Family Cancer; Negative Family Neurologic Problems, Family Psychiatric Problems, Family Respiratory Disorders, Family Cardiac Disorders, Family Gastrointestinal Problems, Family Surgery or Family Anesthesia Reaction Surgical History SURGICAL: Negative Cardiac Surgery, Open Heart Surgery, Coronary Artery Bypass Graft, Valve Replacement, Vascular Surgery, Coronary Stent, Cardiac Catheterization, Pacemaker, Angiogram, Auto Implanted Cardiovert Defib, Carotid Endarterectomy, Endocrine Surgery, Thyroidectomy, Ear Surgery, Tympanostomy Tube, Eye Surgery, Nose Surgery, Oral Surgery, Tonsillectomy, Adenoidectomy, Cochlear Implant, Corneal Transplant, Throat Surgery, Abdominal Surgery, Tracheostomy, Gastric Bypass Surgery, Gastrostomy, Bowel Surgery, Nephrectomy, Transurethral Resection, Joint Replacement, Amputation, Open Reduction Internal Fixation, Arthroscopy, Neurologic Surgery, Brain Shunt, Vasectomy or Organ Transplant Social History SMOKING STATUS: Never smoker SUBSTANCE USE: does not use ED Exam Narrative Physical exam: Generally patient is alert elderly appearing male appearing older than stated age, eyes show funduscopic exam showed no evidence of vitreous hemorrhage with pupils equal round and reactive to light and without obvious visual field defect, heart regular rate and rhythm, lungs clear to auscultation bilaterally, abdomen soft bowel sounds present nontender extremities show muscle wasting throughout, neurologic exam patient is alert and oriented x 4 with 4/5 muscle strength to left upper and left lower extremity. Course Quality Measures none Orders Category Date Time Status EKG (ED ONLY) *Do not use* NOW Care 12/14/24 19:[address] head/brain wo con Stat Exams 12/14/24 19:11 Completed EKG (ED Only) Stat Exams 12/14/24 19:11 Draft CBC Stat Lab 12/14/24 19:25 Completed CMP [Comprehensive Metabolic Panel] Stat Lab 12/14/24 19:25 Completed PT [Prothrombin Time with INR] Stat Lab 12/14/24 19:25 Completed Vital Signs Vital signs: Vital Signs Temperature 99 F 12/14/24 18:59 Pulse Rate 86 12/14/24 18:59 Respiratory Rate 18 12/14/24 18:59 Blood Pressure 150/71 H 12/14/24 18:59 Pulse Oximetry (%) 96 12/14/24 18:59 Oxygen Delivery Method Room Air 12/14/24 18:59 Eye MDM Narrative MDM Narrative:: Scribe Attestation: 12/14/24 - Mila Angeles am scribing for and in the presence of Dr. Lennon. Last known normal was 22 hours prior to my evaluation. Head CT shows atrophy without acute disease process. Patient is not hypertensive. Blood sugar was slightly elevated. Teleneurology consult was obtained. They recommend admission to the hospital and obtain MRI of the brain looking for posterior circulation issues tomorrow. Continue aspirin. Case was discussed with the hospitalist for admission. 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. Record#: [id number] Birthdate: 1955 Age/Sex: 69 / M [facility] Attending Dr: Ordering Physician: Juan Lennon DO Date of Service: 12/14/24 Procedure(s): CT head/brain wo con Accession Number(s): [id number] cc: Karlo Allen MD; NO PRIMARY/FAMILY,PHYSICIAN; Juan Lennon DO~ Examination: CT brain head without contrast. 2-D sagittal coronal reconstructions Date and time of exam:December 14, 2024, 1947 hours INDICATIONS: Altered mental status today CTDI: vol (mGy):54.8 DLP: (mGycm):1038 Technique: Multiple CT axial sections of the brain have been obtained, 5 mm slice thickness. Contrast has not been administered. 2-D sagittal, coronal reconstructions have been obtained Low dose protocols were performed. One or more of the following dose reduction techniques were used; automated exposure control, adjustment of the mA and/or KV according to patient size, use of iterative reconstruction technique. Findings: No significant ventricular enlargement. Stable right thalamic infarct and left basal ganglia infarct compared with September 25, 2024 Intra-axial or extra-axial hemorrhage density is not seen. No mass effect or midline shift Basal cisterns are not remarkable. Fourth ventricle is midline. Cranial vault intact. Impression: Negative for acute hemorrhage, mass effect or midline shift As clinically warranted, brain MRI follow-up would best assess for acute infarction Dictated By: Karlo Allen MD Signed By: <Electronically signed by Karlo Allen MD in [place]> 12/14/242014 Medications / Prescriptions Medications or Prescriptions considered but not ordered:: none Medication administrations:: none Consultations Consultation(s) initiated? (list below): Yes Diagnosis Eye Problem Differential Diagnosis: other (retinal detachment, CVA, TIA) Most likely diagnosis given after review of the tests above:: see clinical impression below Admission Indicated Admission indicated?: indicated Admission Request Was there a request for admission?: Yes Admission Attestation Admission request attestation: Discussed case with [] from Hospitalist service regarding admission. Discussed patients ED course, exam findings, labs, and radiology results. The Hospitalist [agrees,declines] to accept the patient for admission. Disposition Plan Disposition Plan: Admit Discharge Plan Plan Patient Disposition: Admit Acute Care w/in Hospital Prescriptions/Referrals Prescriptions/Med Rec: No Action duloxetine 60 mg Capsule,Delayed Release(Dr/Ec) 60 mg PO QDAY aspirin 81 mg Tablet,Delayed Release (Dr/Ec) 81 mg PO QDAY tamsulosin 0.4 mg capsule 0.4 mg PO QDAY gabapentin 300 mg capsule 300 mg PO BID hydralazine 50 mg tablet 50 mg PO QDAY amlodipine 10 mg tablet 10 mg PO QDAY Qty: 30 0RF lisinopril 40 mg tablet 40 mg PO QDAY Qty: 30 0RF Nephro-Siobhan 0.8 mg tablet 1 tab PO QDAY Patient Comments: TOME MARINA TABLETA TODOS LOS D Farxiga 10 mg tablet 10 mg PO QDAY sodium polystyrene sulfonate Powder 15 g PO QDAY Patient Comments: TOME 15 GM POR V A ORAL TODOS LOS D ondansetron 4 mg tablet,disintegrating 4 mg PO Q8H PRN (Reason: nausea and vomiting) Qty: 10 0RF cephalexin 500 mg capsule 500 mg PO TID Qty: 21 0RF Kerendia 10 mg Tablet 10 mg PO QDAY Novolin R FlexPen 100 unit/mL (3 mL) Insulin Pen See Rx Instructions .ROUTE .COMPLEX Rx Instructions: per sliding scale. insulin glargine [Basaglar KwikPen U-100 Insulin] 100 unit/mL (3 mL) insulin pen 30 unit SUBCUT HS Patient Comments: INJECTE 30 UNIDADES SUBCUTANEOUS DIARIO AL ACOSTAR (DME) pen needle, diabetic [BD Ultra-Fine Mini Pen Needle] 31 gauge x 3/16 needle Patient Comments: USE 3 TIMES A DAY Referrals: No Primary/Family,Physician [Primary Care Provider] - In 1 week Problem List Clinical Impression: Diplopia, History of cardioembolic cerebrovascular accident (CVA) Patient/Caregiver Discharge Instructions Print Language: Greek Stand Alone Forms: Julianna Award Info., Patient Portal Info Letter
[2024-12-14 18:59] VITALS: BP 150/71; PULSE 86; RESP 18; TEMP 37.2; O2SAT 96
--- NOTE | 2024-12-14 19:11 | EKG_ITS ---
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
--- NOTE | 2024-12-14 19:11 | XR_ITS ---
Examination: CT brain head without contrast. 2-D sagittal coronal reconstructions Date and time of exam:December 14, 2024, 1947 hours INDICATIONS: Altered mental status today CTDI: vol (mGy):54.8 DLP: (mGycm):1038 Technique: Multiple CT axial sections of the brain have been obtained, 5 mm slice thickness. Contrast has not been administered. 2-D sagittal, coronal reconstructions have been obtained Low dose protocols were performed. One or more of the following dose reduction techniques were used; automated exposure control, adjustment of the mA and/or KV according to patient size, use of iterative reconstruction technique. Findings: No significant ventricular enlargement. Stable right thalamic infarct and left basal ganglia infarct compared with September 25, 2024 Intra-axial or extra-axial hemorrhage density is not seen. No mass effect or midline shift Basal cisterns are not remarkable. Fourth ventricle is midline. Cranial vault intact. Impression: Negative for acute hemorrhage, mass effect or midline shift As clinically warranted, brain MRI follow-up would best assess for acute infarction
[2024-12-14 19:52] LABS: Basophils # (Auto) 0.1 Thou/mm3 (0.0-0.2); Basophils % (Auto) 1 % (0-2.5); Eosinophils # (Auto) 0.2 Thou/mm3 (0.0-0.5); Eosinophils % (Auto) 3 % (0-10); Hematocrit 38.9 % (41.0-53.0); Hemoglobin 13.2 g/dL (13.5-16.0); Immature Granulocytes Auto 0.02 Thou/mm3 (0.00-0.00); Lymphocytes # (Auto) 1.9 Thou/mm3 (1.0-4.8); Lymphocytes % (Auto) 29 % (10-50); Mean Corpuscular HGB Conc 33.9 g/dl (31.0-37.0); Mean Corpuscular Hemoglobin 32.0 pg (25.0-35.0); Mean Corpuscular Volume 94 fL (80-100); Monocytes # (Auto) 0.4 Thou/mm3 (0.0-0.8); Monocytes % (Auto) 7 % (0-12); Neutrophils # (Auto) 4.0 Thou/mm3 (1.8-7.7); Neutrophils % (Auto) 61 % (37-80); Nucleated Red Blood Cell # 0.00 Thou/mm3 (0.00-0.00); Nucleated Red Blood Cell % 0 /100 WBC (0); Platelet Count 135 Thou/mm3 (140-440); RDW Standard Deviation 45.4 fL (35.1-43.9); Red Blood Count 4.12 Miln/mm3 (4.50-5.90); White Blood Count 6.5 Thou/mm3 (3.8-10.6)
[2024-12-14 20:05] LABS: INR 1.0 (0.9-1.3); Prothrombin Time 10.8 Seconds (9.0-12.2)
[2024-12-14 20:10] LABS: Alanine Aminotransferase 62 U/L (10-49); Albumin, Serum 3.6 gm/dL (3.4-4.8); Albumin/Globulin Ratio 1.5 (1.2-2.2); Alkaline Phosphatase 75 U/L (46-116); Anion Gap 9 (7-16); Aspartate Amino Transferase 43 U/L (0-34); BUN/Creatinine Ratio 15 Ratio (12-20); Bilirubin,Total 0.4 mg/dL (0.3-1.2); Blood Urea Nitrogen 31 mg/dL (9-23); Calcium 8.8 mg/dL (8.3-10.6); Calcium (Corrected) 9.1 mg/dL (8.5-10.1); Carbon Dioxide 28.2 mMol/L (20.0-31.0); Chloride 104 mMol/L (98-107); Creatinine (Component) 2.1 mg/dL (0.6-1.3); Estimated Creatinine Clearance 30.8 mL/min (>60); Globulin 2.4 gm/dL (2.3-3.5); Glucose 301 mg/dL (74-106); Osmolality,Calculated 298 (275-295); Potassium 4.5 mMol/L (3.4-5.1); Sodium 141 mMol/L (136-145); Total Protein 6.0 gm/dL (5.7-8.2); eGFR 34 See Note
--- NOTE | 2024-12-14 20:14 | PC.NURSE ---
telenuero on cart with pt
--- NOTE | 2024-12-14 21:08 | ESCONSULT_ITS ---
Tele Neuro Consultation Consultation Date 12/14/24 Most Recent Vital Signs Last Vital Signs Temp 99 F 12/14/24 18:59 Pulse 86 12/14/24 18:59 Resp 18 12/14/24 18:59 BP 150/71 H 12/14/24 18:59 Pulse Ox 96 12/14/24 18:59 O2 Del Method Room Air 12/14/24 18:59 Laboratory-Coagulation Panel PT 10.8 Seconds (9.0-12.2) 12/14/24 19:25 INR 1.0 (0.9-1.3) 12/14/24 19:25 Consultation Narrative [facility] TeleNeurology Consult Services Stat Consult Patient Name:???Dominik Navarrete Date of :???1955 Identification Number:??? Date of Service:???12/14/2024 19:12:59 Diagnosis: ?H53.8 - Blurred Vision Impression Patient presents to the ED for evaluation of blurry vision. On my exam, patient was able to identify numbers in all visual woods and read but endorsed some subjective blurry vision in both eyes and did not appear to have any hemianopia and denied any diplopia. He had symmetric smile and equal strength in his upper and lower extremities and baseline numbness in his left hemiface from prior stroke. CT head demonstrated no acute abnormalities. Given bilateral vision abnormalities, I would recommend admission for MRI to rule out posterior circulation CVA. Recommendations: Our recommendations are outlined below. Diagnostic Studies : MRI head without contrast Obtain TTE, monitor on telemetry Laboratory Studies : Check lipid profile, A1c Antithrombotic Medication : Aspirin 81 mg PO daily Permissive hypertension, Antihypertensives with prn for first 24-48 hrs post stroke onset. If BP greater than 220/120 give Labetalol IV or Vasotec IV Statins for LDL goal less than 70 Nursing Recommendations : IV Fluids, avoid dextrose containing fluids, Maintain euglycemia Neuro checks q4 hrs x 24 hrs and then per shift Head of bed 30 degrees Continue with Telemetry Consultations : Recommend Speech therapy if failed dysphagia screen Physical therapy/Occupational therapy DVT Prophylaxis : Choice of Primary Team Disposition : Neurology will follow Advanced Imaging:Advanced Imaging Deferred because: Non-disabling symptoms as verified by the patient; no cortical signs so not consistent with LVO Metrics: Dispatch Time: 12/14/2024 19:12:59 Callback Response Time: 12/14/2024 19:13:25 Primary Provider Notified of Diagnostic Impression and Management Plan on: 12/14/2024 21:04:45 CT HEAD: I personally reviewed all the CT images that were available to me and it showed:?No evidence of hemorrhage or acute infarct. ImagingReviewed LabsReviewed -------- Chief Complaint: Blurry vision History of Present Illness:Patient is a 69 year old Male. Patient presents to the ED for evaluation of blurry vision. Patient states that this morning when he woke up he noticed seeing spider webs in both eyes. He states that everything appears blurry and slightly dark. He denies any headache or eye pain. He does report having similar symptoms 2 years ago that resolved on their own and denies any eye problems at baseline. He states that he is still able to read but he sees lines and spider webs. Denies any other new focal neurologic deficits. Of note, patient reports history of prior CVA with some residual left facial numbness but no other residual symptoms. ? Past Medical History: ?Hypertension ?Diabetes Mellitus ?Hyperlipidemia ?Stroke Medications: No Anticoagulant use? Antiplatelet use:?Yes?ASA 81 Reviewed EMR for current medications Allergies:? Reviewed Social History: Smoking: No Family History: There is no family history of premature cerebrovascular disease pertinent to this consultation ROS : 14 Points Review of Systems was performed and was negative except mentioned in HPI. Past Surgical History: There Is No Surgical History Contributory To Today?s Visit ? Examination: BP(150/71),?Pulse(86), 1A: Level of Consciousness - Alert; keenly responsive?+ 0 1B: Ask Month and Age - Both Questions Right?+ 0 1C: Blink Eyes & Squeeze Hands - Performs Both Tasks?+ 0 2: Test Horizontal Extraocular Movements - Normal?+ 0 3: Test Visual Woods - No Visual Loss?+ 0 4: Test Facial Palsy (Use Grimace if Obtunded) - Normal symmetry?+ 0 5A: Test Left Arm Motor Drift - No Drift for 10 Seconds?+ 0 5B: Test Right Arm Motor Drift - No Drift for 10 Seconds?+ 0 6A: Test Left Leg Motor Drift - No Drift for 5 Seconds?+ 0 6B: Test Right Leg Motor Drift - No Drift for 5 Seconds?+ 0 7: Test Limb Ataxia (FNF/Heel-Juarez) - No Ataxia?+ 0 8: Test Sensation - Mild-Moderate Loss: Less Sharp/More Dull?+ 1 9: Test Language/Aphasia - Normal; No aphasia?+ 0 10: Test Dysarthria - Normal?+ 0 11: Test Extinction/Inattention - No abnormality?+ 0 NIHSS Score:?1 NIHSS Free Text :?L facial numbness baseline from prior stroke Spoke with :?Dr. Lennon This consult was conducted in real time using interactive audio and video technology. Patient was informed of the technology being used for this visit and agreed to proceed. Patient located in hospital and provider located at home/office setting. Patient is being evaluated for possible acute neurologic impairment and high p robability of imminent or life - threatening deterioration.I spent total of 35 minutes providing care to this patient, including time for face to face visit via telemedicine, review of medical records, imaging studies and discussion of findings with providers, the patient and / or family. Dr Juan Carlos Gonzalez [facility] For Inpatient follow-up with [facility] physician please call [facility] at . As we are not an outpatient service for any post hospital discharge needs please contact the hospital for assistance. If you have any questions for the [facility] physicians or need to reconsult for clinical or diagnostic changes please contact us via [facility] at . Signature :?Juan Carlos Gonzalez ?
[2024-12-14 21:09] VITALS: BP 137/86; PULSE 77; RESP 16; TEMP 36.9; O2SAT 98
--- NOTE | 2024-12-14 21:55 | ECHO_ITS ---
Transthoracic Echo Report Ht (in): 66 Wt (lb): 165 Exam Location: Echo Lab Status: [facility] Specialist: Kriss Mercado Indications: Procedure Performed: BP: 149 / 90 HR: 71 MEASUREMENTS (Male / Female) Normal Values 2D ECHO LV Diastolic Diameter PLAX 4.0 cm 4.2 - 5.9 / 3.9 - 5.3 cm LV Systolic Diameter PLAX 2.9 cm IVS Diastolic Thickness 1.3 cm 0.6 - 1.0 / 0.6 - 0.9 cm LVPW Diastolic Thickness 1.7 cm 0.6 - 1.0 / 0.6 - 0.9 cm LV Relative Wall Thickness 0.8 LVOT Diameter 1.8 cm Ascending Aorta Diameter 3.0 cm M-MODE AV Cusp Separation MM 1.7 cm DOPPLER AV Peak Velocity 124.0 cm/s AV Peak Gradient 6.2 mmHg AV Mean Gradient 3.0 mmHg AV Velocity Time Integral 21.8 cm LVOT Peak Velocity 77.6 cm/s LVOT Peak Gradient 2.4 mmHg LVOT Velocity Time Integral 15.1 cm LVOT Cardiac Index 1449.6 cm?/min?m? AV Area Cont Eq vti 1.8 cm? AV Area Cont Eq pk 1.6 cm? MV Area PHT 2.9 cm? Mitral E Point Velocity 60.6 cm/s Mitral A Point Velocity 83.4 cm/s Mitral E to A Ratio 0.7 TR Peak Velocity 121.0 cm/s TR Peak Gradient 5.9 mmHg PV Peak Velocity 59.1 cm/s PV Peak Gradient 1.4 mmHg FINDINGS Left Ventricle Normal left ventricular size, wall thickness, systolic function with no obvious regional wall motion abnormalities.Grade I diastolic dysfunction. Technical difficult study due to patient in pain. The ejection fraction is visually estimated at 60-65 %. Right Ventricle The right ventricle is normal in size and systolic function. The estimated right ventricular systolic pressure, __ mmHg. Left Atrium The left atrium is normal by two-dimensional, color flow and Doppler imaging with no structural abnormalities, no thrombus formation present. Right Atrium The right atrium is normal by two-dimensional imaging, color flow and Doppler imaging with no structural abnormalities, no thrombus formation present. Atrial Septum The interatrial septum appears normal with no evidence of a shunt. Aorta The aorta is normal by two-dimensional, color flow and Doppler interrogation. Mitral Valve Mild MAC Aortic Valve Aortic valve sclerosis without stenosis.Trace aortic valve regurgitation. Tricuspid Valve The tricuspid valve is normal by two-dimensional, color flow and Doppler interrogation. There is trace tricuspid valve regurgitation. Pulmonic Valve The pulmonic valve is not well visualized. Trace pulmonic valve regurgitation. Vessels The pulmonary artery appears normal. The inferior vena cava pulmonary and hepatic veins appear normal. Pericardium The pericardium is normal by two-dimensional imaging. Other Findings Technical difficult study due to patient in pain wouldnt allow me to complete study. CONCLUSIONS Indication: CVA / stroke -Bubble study Normal left ventricular size and function. Grade I diastolic dysfunction. Approximate ejection fraction is 60- 65%. Normal Right ventricular size and function. Mild AV sclerosis without stenosis. Trace AI and PI. Mild MAC Technical difficult study due to patient in pain wouldnt allow me to complete study. Glen Zacarias (Electronically Signed) Final Date: 16 December 2024 11:02
--- NOTE | 2024-12-14 21:59 | PD.RESHP ---
Documentation for date of: 12/14/24 HPI History of Present Illness Chief complaint: Blurry vision History of present illness: 69 y/o M with PMHx significant for multiple CVAs, diabetes, hypertension, CKD presents with chief complaint blurry vision x 1 day. Per patient he woke up the morning of 12/10/2024 with blurry and darkened vision. Patient denies having similar symptoms in the past. Patient's vision has not improved since then. Patient denies fevers, chills, Shortness of Breath, Nausea, Vomiting, Weakness. ED COURSE: Labs significant for: WBC 6.5, BUN 31, creatinine 2.1, EGFR 34. T. bili 0.4, AST 43, ALT 62, ALP 75. Imaging significant for: CT head negative for acute pathology. PMH: CVA, diabetes, hypertension, CKD PSH: None SH: Denies alcohol, tobacco, illicit drug use Allergies:?NKDA Medications: Lisinopril, Ozempic, atorvastatin Review of Systems Review of Systems Systems Reviewed: All systems reviewed, normal except as documented Past Medical History Past Medical History Comments PMH COMMENT: PMH: CVA, diabetes, hypertension, CKD PSH: None SH: Denies alcohol, tobacco, illicit drug use Allergies:?NKDA Medications: Lisinopril, Ozempic, atorvastatin Exam Vital Signs Temp Pulse Resp BP Pulse Ox O2 Del Method 98.4 F 77 16 137/86 H 98 Room Air 12/14/24 21:09 12/14/24 21:09 12/14/24 21:09 12/14/24 21:09 12/14/24 21:09 12/14/24 21:09 Narrative Exam PE: Gen: Well-developed and well-nourished. HEENT: NCAT, PERRLA, EOMI, MMM, anicteric conjunctivae. CVS: normal S1 and S2. RRR. No M/R/G. Resp: CTA B/L. No rhonchi, rales, crackles or wheezing. Abd: soft, non-tender, non-distended. BS+ in all 4 quadrants. MSK: Good ROM in BUE & BLE. No edema or rash. Neuro: CN II-XII grossly intact. Strength 5/5 in BUE & BLE. Alert and oriented x3. Mild left facial numbness, baseline. No visual field loss. Psych: appropriate mood and affect. Results: Labs 12/14/24 19:25 12/14/24 19:25 Labs: Short CBC 12/14/24 Range/Units 19:25 WBC 6.5 (3.8-10.6) Thou/mm3 Hgb 13.2 L (13.5-16.0) g/dL Hct 38.9 L (41.0-53.0) % Plt Count 135 L (140-440) Thou/mm3 BMP 12/14/24 19:25 Sodium 141 Potassium 4.5 Chloride 104 Carbon Dioxide 28.2 BUN 31 H Creatinine 2.1 H Glucose 301 H Calcium 8.8 Liver Function 12/14/24 Range/Units 19:25 Total Bilirubin 0.4 (0.3-1.2) mg/dL AST 43 H (0-34) U/L ALT 62 H (10-49) U/L Alkaline Phosphatase 75 (46-116) U/L Albumin 3.6 (3.4-4.8) gm/dL Quality Measures Quality Measures VTE prophylaxis Advance care planning discussed with:: patient Medications Home Medications and Allergies Home Medications ?Medication ?Instructions ?Recorded ?Confirmed ?Type duloxetine 60 mg capsule,delayed 60 mg PO QDAY 06/14/19 01/28/23 History release aspirin 81 mg tablet,delayed 81 mg PO QDAY 05/25/21 01/28/23 History release gabapentin 300 mg capsule 300 mg PO BID 10/19/21 01/28/23 History hydralazine 50 mg tablet 50 mg PO QDAY 10/19/21 01/28/23 History tamsulosin 0.4 mg capsule 0.4 mg PO QDAY 10/19/21 01/28/23 History finerenone 10 mg tablet (Kerendia) 10 mg PO QDAY 05/12/22 01/28/23 History insulin regular human 100 unit/mL See Rx Instructions .Route .COMPLEX 05/12/22 01/28/23 History (3 mL) subcutaneous pen (Novolin R FlexPen) insulin glargine 100 unit/mL (3 30 unit subcut HS 05/30/22 01/28/23 History mL) subcutaneous pen (Basaglar KwikPen U-100 Insulin) pen needle, diabetic 31 gauge x 05/30/22 05/30/22 History 3/16 (BD Ultra-Fine Mini Pen Needle) dapagliflozin propanediol 10 mg 10 mg PO QDAY 01/28/23 01/28/23 History tablet (Farxiga) sodium polystyrene sulfonate 15 g PO QDAY 01/28/23 01/28/23 History vitamin B complex-vitamin C-folic 1 tab PO QDAY 01/28/23 01/28/23 History acid 0.8 mg tablet (Nephro-Siobhan) Allergies Allergy/AdvReac Type Severity Reaction Status Date / Time No Known Allergies Allergy Verified 12/14/24 18:49 Visit Medications Acetaminophen (Acetaminophen 325 Mg Tablet) 650 mg PO Q6H PRN PRN Reason: Fever >100.4 or pain Stop: 01/13/25 21:49 Aspirin (Aspirin Ec 81 Mg Tabec) 81 mg PO QDAY TWYLA Stop: 01/14/25 08:59 Dextrose (Dextrose 50%-Water Inj 50 Ml Syringe) 25 ml IV Q15MIN PRN PRN Reason: BG 50-70 responsive npo pt Stop: 01/13/25 21:57 Dextrose (Dextrose 50%-Water Inj 50 Ml Syringe) 50 ml IV Q15MIN PRN PRN Reason: BG <50 OR BG <70 & pt unresponsive Stop: 01/13/25 21:57 Docusate Sodium (Docusate Sod 100 Mg Capsule) 100 mg PO QDAY PRN; Protocol PRN Reason: CONSTIPATION Stop: 01/13/25 21:49 Glucagon (Glucagon Inj 1 Mg Vial) 1 mg IM Q15MIN PRN PRN Reason: BG <70, and no IV access Ondansetron HCl (Ondansetron Inj 2 Mg/Ml Inj 2 Ml) 4 mg IVP Q6H PRN; Protocol PRN Reason: NAUSEA OR VOMITING Stop: 01/13/25 21:49 Sennosides (Senna Tablet) 1 tab PO QDAY PRN; Protocol PRN Reason: constipation Stop: 01/13/25 21:49 Assessment & Plan Plan 69 y/o M with PMHx significant for multiple CVAs, diabetes, hypertension, CKD presents with chief complaint blurry vision x 1 day, admitted for stroke rule out. #Stroke rule out #CVAs with residual deficits Patient presents with chief complaint of blurry vision x 1 day. Patient is history of CVAs with residual left-sided weakness. Head CT negative for acute pathology. Patient has no visual field loss on exam. Teleneuro consulted, recommend admission for MRI and CVA rule out. - Neurology consulted, appreciate recommendations - Aspirin 81 mg p.o. daily - Lipids, TSH, A1c ordered, follow-up - MRI head/brain with and without contrast ordered, follow-up - Neurochecks every 4 hours - Permissive hypertension #CKD Patient history as stated. Creatinine 2.1, EGFR 34, close to patient's baseline. No suspicion for HARRY. - Monitor daily renal function - Avoid nephrotoxins - Renally dose meds as appropriate #HTN #DM Patient history as stated. Med rec's pending. A1c 7.3% as of 01/27/2023. - Permissive hypertension as above - ISS - A1c ordered, follow-up - Resume home antihypertensives when appropriate DVT prophylaxis: SCDs GI prophylaxis: None Diet: Carb consistent, renal Lines: Peripheral IV Code status: Full code Plan of care discussed with Dr. John Connolly MD PGY?2 Attending Provider Attestation/Addendum I have examined the patient, reviewed labs and imaging findings, discussed the case with the resident(s), and reviewed entered orders. I agree with the plan of care as outlined in this note, with these additional summaries/recommendations: After examination of the patient and review of the clinical data, I feel that this patient needs admission to the hospital for further treatment and evaluation. Patient is a 69-year-old male with a medical history of primary hypertension, diabetes mellitus type 2, BPH, diabetic neuropathy, diabetic nephropathy, and CVA presents to [facility] emergency department on 12/14/2024 with chief complaint of bilateral blurry vision. Patient seen at bedside. He endorses bilateral blurry vision. He does report some improvement since arriving in the ED. Visual argueta are still relatively intact. He does endorse intermittent blurry vision in the past. He has never seen an eye doctor. Stroke alert was called in the emergency room. CT head negative for acute hemorrhage, mass effect or midline shift. Patient was seen by teleneurology who recommends admission for CVA rule out. Etiology for blurry vision likely secondary to acute CVA versus diabetic retinopathy. Patient does have history of CVA in the past. Order MRI brain and transthoracic echocardiogram. Risk factor stratification with lipid panel, A1c, TSH. Allow permissive hypertension. Resume home aspirin 81 mg p.o. at bedtime and atorvastatin. Order swallow screen and PT evaluation. Consult in-house neurology, recommendations appreciated. Patient was counseled he needs to be seen by ophthalmology yearly to screen for diabetic retinopathy with dilated eye exam. Patient has underlying CKD which is most likely secondary to diabetic nephropathy. Renal function appears at baseline and on admission creatinine 2.1 and BUN 31. We will hold home lisinopril for now to allow for permissive hypertension. Avoid nephrotoxic agents and renally dose medications. Start insulin sliding scale for diabetes mellitus type 2 with Accu-Cheks. Target blood sugar of 140-180 while hospitalized. Cymbalta for neuropathy after swallow screen. Patient updated on the plan and in agreement. All questions answered to satisfaction. Please see residents note for additional details and management. Dr. John MD
--- NOTE | 2024-12-14 22:20 | PC.NURSE ---
CALLED DR. WERNER PT GLUCOSE [phone] NO COVERAGE STATED THE WILL ADD ORDER FOR NOW
[2024-12-14] MEDS: INSULIN LISPRO (AdmeLOG) 1 UNIT/0.01 ML UNIT SC (22:36)
--- NOTE | 2024-12-14 23:32 | PC.NURSE ---
ATTEMPTED TO CALL TO COMPLETE MRI NO ANSWER PT IS UNAWARE
[2024-12-15] VITALS (9 sets, daily range): BP systolic 145–169; BP diastolic 86–101; PULSE 61–90; RESP 12–19; TEMP 35.9–36.7; O2SAT 96–99; BMI 26.4
--- NOTE | 2024-12-15 | XR_ITS ---
Examinations: MRI Brain without intravenous contrast. MRA brain without intravenous contrast. MRA carotids without intravenous contrast 3-D vascular reconstructions Date and time of exam: December 15, 2024 1551 hours Comparison January 28, 2023 INDICATIONS: Visual hallucinations this morning, with altered mental status, history brain stem infarct January 28, 2023 Technique: Multiple axial and sagittal images of the brain have been obtained MRA brain carotid images without contrast obtained, including 3-D postprocessing, vascular maximum intensity projection images Findings: Sellaturcica is not enlarged. The optic chiasm and infundibular stalk are not remarkable. Prepontine and interpeduncular cisterns are not enlarged. No localized enlargement of the medulla or sailaja. Fourth ventricle and cerebellar tonsils normal in position. Subacute hemorrhage is not seen. Fourth ventricle is midline. Mass in the cerebellopontine angle region is not evident. 7th and 8th nerve complexes exhibits symmetry. Globes are symmetrical with no retro-orbital mass. Increased white matter signal prominent Diffusion-weighted images demonstrate no focus of restricted diffusion Mass-effect upon the ventricular system is not identified. MRA carotid images degraded by patient motion. 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
[2024-12-15 06:07] LABS: Basophils # (Auto) 0.1 Thou/mm3 (0.0-0.2); Basophils % (Auto) 1 % (0-2.5); Eosinophils # (Auto) 0.2 Thou/mm3 (0.0-0.5); Eosinophils % (Auto) 3 % (0-10); Hematocrit 39.0 % (41.0-53.0); Hemoglobin 12.7 g/dL (13.5-16.0); Immature Granulocytes Auto 0.02 Thou/mm3 (0.00-0.00); Lymphocytes # (Auto) 2.6 Thou/mm3 (1.0-4.8); Lymphocytes % (Auto) 36 % (10-50); Mean Corpuscular HGB Conc 32.6 g/dl (31.0-37.0); Mean Corpuscular Hemoglobin 31.1 pg (25.0-35.0); Mean Corpuscular Volume 96 fL (80-100); Monocytes # (Auto) 0.5 Thou/mm3 (0.0-0.8); Monocytes % (Auto) 7 % (0-12); Neutrophils # (Auto) 3.8 Thou/mm3 (1.8-7.7); Neutrophils % (Auto) 52 % (37-80); Nucleated Red Blood Cell # 0.00 Thou/mm3 (0.00-0.00); Nucleated Red Blood Cell % 0 /100 WBC (0); Platelet Count 132 Thou/mm3 (140-440); RDW Standard Deviation 46.5 fL (35.1-43.9); Red Blood Count 4.08 Miln/mm3 (4.50-5.90); White Blood Count 7.3 Thou/mm3 (3.8-10.6)
[2024-12-15 06:29] LABS: INR 1.0 (0.9-1.3); Partial Thromboplastin Time 26.8 Seconds (22.0-36.0); Prothrombin Time 10.8 Seconds (9.0-12.2)
[2024-12-15 06:37] LABS: Anion Gap 10 (7-16); BUN/Creatinine Ratio 13 Ratio (12-20); Blood Urea Nitrogen 26 mg/dL (9-23); Calcium 9.2 mg/dL (8.3-10.6); Carbon Dioxide 26.9 mMol/L (20.0-31.0); Cardiac Risk Estimate 3.0 RATIO (4.0-6.7); Chloride 108 mMol/L (98-107); Cholesterol 133 mg/dL (132-200); Creatinine (Component) 2.0 mg/dL (0.6-1.3); Estimated Creatinine Clearance 32.3 mL/min (>60); Glucose 131 mg/dL (74-106); HDL Cholesterol 44 mg/dL (40-60); LDL Cholesterol,Calculated 74 mg/dL (0-130); Magnesium 2.4 mg/dL (1.6-2.6); Osmolality,Calculated 295 (275-295); Phosphorous 4.0 mg/dL (2.4-5.1); Potassium 4.4 mMol/L (3.4-5.1); Sodium 145 mMol/L (136-145); Thyroid Stimulating Hormone 3.30 uIU/mL (0.55-4.78); Triglycerides 75 mg/dL (30-150); eGFR 36 See Note
[2024-12-15 06:58] LABS: Glucose Estimated Average 183 mg/dL (80-131); Hemoglobin A1C 8.0 % Hgb (4.8-6.0)
--- NOTE | 2024-12-15 08:17 | ESPR_ITS ---
<Statement entered by Shelbie Cordero MD - 12/19/24 15:07> I reviewed above note and agree with findings and plans. I have also personally examined the patient with medicine team and went over assessment and plan with medical team including physician general internal medicine and resident physician. <Statement entered by Ty Baez MD - 12/15/24 16:32> Patient was examined and case was reviewed with team including attending physician. Note reviewed, I agree with most of its contents and agree with the patient's care as documented by Dr. Hicks Patient seen and evaluated at the bedside. Patient has blurry vision with 2-day onset that has since resolved. Patient has had multiple strokes in the past with residual left-sided deficits but at this time denies any new symptoms. Patient is pending MRI brain and echocardiogram as part of CVA workup. Case discussed with my attending Dr. Gil Baez MD PGY-2 Disclaimer: Despite multiple revisions, due to the dictation software being used, the document bellow may not be free of grammatical errors including phonetic/typographic errors. However, this does not deter from our commitment to providing health care in the patient's best interest in mind. Documentation for date of: 12/15/24 Subjective Subjective Interval history: Patient evaluated at bedside. History provided by patient, patient's son and [id number]. Patient developed blurry vision about 2 days ago that has since resolved. He has had multiple strokes in the past with residual left- sided weakness of the upper and lower extremities. Denies new symptoms. Denies new paresthesias, weaknesses, headaches, abdominal pain, nausea, vomiting, recent falls. Patient does not perform ADLs without assistance. He lives at home with his who is his primary chef passenger vessel. He has not seen a prosthetics lab technician or java front end web developer in several years, though he does have a history of diabetes. Exam Vital Signs Temp Pulse Resp BP Pulse Ox O2 Del Method 96.6 F L 75 17 147/90 H 97 Room Air 12/15/24 04:00 12/15/24 04:00 12/15/24 04:00 12/15/24 04:00 12/15/24 04:00 12/15/24 04:00 Narrative Exam General: No acute distress, well nourished Eye: PERRL, EOMI, normal conjunctiva, no scleral icterus HENT: Normocephalic, atraumatic, hearing intact to conversation at normal volume, moist oral mucosa Neck: Supple, non-tender, no JVD, no lymphadenopathy Lungs: CTAB, non-labored respirations, symmetric chest rise Heart: S1 and S2 present, no murmurs rubs or gallops. Bilateral lower extremities cold, difficult to assess peripheral pulses. Abdomen: Soft, non-tender, non-distended Musculoskeletal: Normal range of motion and strength Skin: Skin is warm, dry, no rashes or lesions. Psychiatric: Cooperative, appropriate mood and affect Neurologic: Mental status: Orientation: AO x 2 Communication: Patient is cooperative and can follow simple instructions Language: Speech fluent, normal rate and volume, comprehension intact Cranial nerves: CN II: Visual argueta intact CN III: Pupils equal, round, and reactive to light CN III, IV, : No gaze deviation, no nystagmus Horizontal pursuit: intact Vertical pursuit: intact Ptosis: none CN V: Facial sensation to light touch intact bilaterally at the forehead, cheeks, and jaw line CN VII: Face symmetric, no facial droop appreciated CN VIII: Able to hear and respond to conversation at normal volume, intact to finger rub CN IX, X: Palate elevation symmetric, uvula midline CN XI: Head turn and shoulder shrug strong, symmetric bilaterally CN XII: Normal tongue protrusion without deviation, no fasciculations Motor: No abnormal movements or fasciculations Muscle strength: Shoulder abduction: R 5/5 L 5/5 Elbow flexion: R 5/5 L 5/5 Elbow extension: R 5/5 L 5/5 Hip flexion: R 5/5 L 5/5 Hip extension: R 5/5 L 5/5 Sensory: Sensation to light touch decreased in distal left upper and lower extremities Sensation to light touch intact on the right upper and lower extremities. Cerebellum: RUE: No dysmetria (finger to nose) LUE: No dysmetria (finger to nose) Objective Labs 12/16/24 06:08 12/16/24 06:08 Labs: Laboratory Results - last 24 hr 12/14/24 12/15/24 19:25 04:50 WBC 6.5 7.3 RBC 4.12 L 4.08 L Hgb 13.2 L 12.7 L Hct 38.9 L 39.0 L MCV 94 96 MCH 32.0 31.1 MCHC 33.9 32.6 RDW Std Deviation 45.4 H 46.5 H Plt Count 135 L 132 L Neut % (Auto) 61 52 Lymph % (Auto) 29 36 Jerome % (Auto) 7 7 Eos % (Auto) 3 3 Baso % (Auto) 1 1 Neut # (Auto) 4.0 3.8 Lymph # (Auto) 1.9 2.6 Jerome # (Auto) 0.4 0.5 Eos # (Auto) 0.2 0.2 Baso # (Auto) 0.1 0.1 Immature Gran # (Auto) 0.02 H 0.02 H Absolute Nucleated RBC 0.00 0.00 Immature Gran % 0 0 Nucleated RBC % 0 0 PT 10.8 10.8 INR 1.0 1.0 APTT 26.8 Sodium 141 145 Potassium 4.5 4.4 Chloride 104 108 H Carbon Dioxide 28.2 26.9 Anion Gap 9 10 BUN 31 H 26 H Creatinine 2.1 H 2.0 H Estim Creat Clear Calc 30.8 L 32.3 L eGFR 34 L 36 L BUN/Creatinine Ratio 15 13 Glucose [address] Glu mg/dL 183 H Hemoglobin A1c 8.0 H Calculated Osmolality 298 H 295 Calcium 8.8 9.2 Corrected Calcium 9.1 Phosphorus 4.0 Magnesium 2.4 Total Bilirubin 0.4 AST 43 H ALT 62 H Alkaline Phosphatase 75 Total Protein 6.0 Albumin 3.6 Globulin 2.4 Albumin/Globulin Ratio 1.5 Triglycerides 75 Cholesterol 133 LDL Cholesterol, Calc 74 HDL Cholesterol 44 Cholesterol/HDL Ratio 3.0 L TSH 3.30 Quality Measures Quality Measures VTE prophylaxis Advance care planning discussed with:: patient and child Assessment & Plan Assessment Current Active Medications: Generic Name Dose Route Start Last Admin Trade Name Freq PRN Reason Stop Dose Admin Acetaminophen 650 mg 12/14/24 21:50 Acetaminophen 325 Mg Tablet PO 01/13/25 21:49 Q6H PRN Fever >100.4 or pain 1-3 Aspirin 81 mg 12/15/24 09:00 Aspirin Ec 81 Mg Tabec PO 01/14/25 08:59 QDAY TWYLA Dextrose 25 ml 12/14/24 21:58 Dextrose 50%-Water Inj 50 Ml Syringe IV 01/13/25 21:57 Q15MIN PRN BG 50-70 responsive npo pt Dextrose 50 ml 12/14/24 21:58 Dextrose 50%-Water Inj 50 Ml Syringe IV 01/13/25 21:57 Q15MIN PRN BG <50 OR BG <70 & pt unresponsive Docusate Sodium 100 mg 12/14/24 21:50 Docusate Sod 100 Mg Capsule PO 01/13/25 21:49 QDAY PRN CONSTIPATION Protocol Glucagon 1 mg 12/14/24 21:58 Glucagon Inj 1 Mg Vial IM Q15MIN PRN BG <70, and no IV access Insulin Human Lispro 0 unit 12/14/24 22:25 12/14/24 22:36 Insulin Lispro (Admelog) 1 Unit/0.01 Ml Unit SC 01/13/25 22:24 2 unit ACHS TWYLA Administration Protocol Ondansetron HCl 4 mg 12/14/24 21:50 Ondansetron Inj 2 Mg/Ml Inj 2 Ml IVP 01/13/25 21:49 Q6H PRN NAUSEA OR VOMITING Protocol Sennosides 1 tab 12/14/24 21:50 Senna Tablet PO 01/13/25 21:49 QDAY PRN constipation Protocol Plan Mr. 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 Admitted for stroke workup. #Blurry vision - improved #Hx CVAs with residual left sided sensory loss UE>LE, dysphagia # Stroke vs TIA w/u Initial symptoms: B/L blurry vision LKAW: 2 days ago Initial NIHSS: 1 (decreased sensation) Inital BP: 150/71 EKG: NSR, HR 82, QTc 434 Initial glucose: 301 A1C: 8 Lipids: Triglycerides 75, cholesterol 133, LDL 74, HDL 44 TSH: 3.[address] head w/o: Negative for acute hemorrhage, midline shift, mass effect MRI/MRA w/ and w/o: Pending TTE: Pending DDX: Stroke, TIA, diabetic retinopathy Plan: - Aspirin 81 mg PO daily - Atorvastatin 40 mg PO daily - Diet per SECURITIES COMPLIANCE EXAMINER: Carb consistent, dysphagia 3 - Pending TTE, MRI stroke protocol - Consulted neurology, pending recs #Type 2 diabetes mellitus A1C 8, initial glucose 301 Has not seen prosthetics lab technician or java front end web developer in several years Patient is wheelchair-bound Hold home meds Plan: - Sliding scale insulin - ACHS blood glucose fingerstick - Continued home med Gabapentin 300 mg PO BID - Counseled patient on f/u with PCP for DM management. Pt will also need to f/u o/p with ophthalmology and podiatry annually #Hypertension sBP 140-150s / dBP 70-90s Plan: - Continue home lisinopril 20 mg PO daily #Hypothyroidism TSH WNL Plan: - Continue home levothyroxine 25 mcg PO daily Checklist Dispo: Pending stroke workup Diet: Carb consistent, dysphagia 3 Bowel Reg: Doc/Senna PRN VTE ppx: SCD GI ppx: none Pain mgmt: Tylenol Code status: Full Plan discussed with Dr. Saldana and Dr. Gil Hicks MD PGY1
--- NOTE | 2024-12-15 08:49 | PCS.ST ---
Swallow Evaluation completed. See report for details. No s/s of aspiration. Mild oral dysphagia. Downgrade diet to soft chopped.
[2024-12-15] MEDS: ASPIRIN EC 81 MG TABEC PO (09:38)
--- NOTE | 2024-12-15 11:24 | PC.SS ---
Patient Dominik Navarrete is a 69 Year old male admitted for Stroke R/O. SS met with patient at bedside to discuss discharge plan and verify demographic information. Patient reports he lives at home with his , Amee Navarrete who he reports is his surrogate decision maker, [phone]. Patient reports he utilizes a wheelchair and FWW to assist with ambulation. Patient reports his assist him with ADL's. choice of pharmacy is [facility]. PCP is Leesa Leyva since his last visit was last month. Patient reports once he is medically cleared he will discharge back home. SS received a call from Juan and he informed SS that patient will need HH upon discharge. Family will provide transportation. Next of kin: , Amee Navarrete Discharge plan: Home with HH/No Preference of PCP: Leesa Leyva-Seen a month ago
--- NOTE | 2024-12-15 14:11 | PD.RESCONSUL ---
HPI Data of Consult Consult date: 12/15/24 Requesting Physician: Shelbie Cordero MD Admitting Provider: Alfredo Lopez MD Attending Provider: Shelbie Cordero MD Primary Care Provider: Leesa Leyva NP Consult Narrative Reason for consult: nephro clearance for MRI stroke protocol History of present illness: Mr Navarrete is a 69 yo gentleman with a hx of multiple CVAs, hx of ICH in 2021, T2DM (A1c 8), HTN, CKD stage IIIb (follows with Mahad) who presented to the ED with bilateral blurry vision. He has had multiple strokes in the past with residual left-sided weakness of the upper and lower extremities. Denies new symptoms. Patient not independent of ADLs He lives at home with his who is his primary regulatory compliance specialist. He has not seen a molding machine operator or energy operations vice president in several years, though he does have a history of diabetes. ROS denies fevers, chills, Shortness of Breath, Nausea, Vomiting, Weakness. ED COURSE: Labs significant for: WBC 6.5, BUN 31, creatinine 2.1, EGFR 34. T. bili 0.4, AST 43, ALT 62, ALP 75. Imaging significant for: CT head negative for acute pathology. PMH: CVA, diabetes, hypertension, CKD IIIb, ICH in 2021, PSH: None SH: Denies alcohol, tobacco, illicit drug use Allergies:?NKDA Medications: Lisinopril, Ozempic, atorvastatin 12/15/2024: Pt presented to the ED with diplopia, CT head negative, admitted for stroke rule out, nephrology consulted to give clearance for MRI stroke protocol in setting of Cr 2.0 (at his baseline). Patient was seen and examined at bedside. He has no focal deficits noted on brief neurological exam, no pronator drift, EOMI, UE strength is 5/5. Per Dr. Tobin, pt is cleared to proceed with MRI stroke protocol cc:: cc: Shelbie Cordero MD Review of Systems Review of Systems Narrative Review of Systems: as per HPI Exam Vital Signs Temp Pulse Resp BP Pulse Ox O2 Del Method 96.9 F 78 15 145/90 H 99 Room Air 12/15/24 08:00 12/15/24 08:00 12/15/24 08:00 12/15/24 08:00 12/15/24 08:00 12/15/24 08:00 Narrative Exam GENERAL: no acute distress, AAO x3, comfortably laying in bed HEENT: Head AT/ NC. Mucous membranes moist. eomi . NECK: Supple, no lymphadenopathy, CARDIOVASCULAR: RRR. Normal S1/S2, No m/r/g. trace edema of bilateral LEs. RESPIRATORY: CTAB. No wheezing, rhonchi, crackles. GASTROINTESTINAL: Abdomen soft, non tender no palpable masses. Bowel sounds present MUSCULOSKELETAL:? No cyanosis or edema, no visible joint swelling. NEUROLOGICAL: CN II-XII grossly intact. No focal deficits. Sensation intact, symmetric. PSYCHIATRIC: Awake and alert, not agitated, normal mood and affect. SKIN: No obvious rashes, no jaundice, normal turgor. Results Labs 12/15/24 04:50 12/15/24 04:50 Labs: Short CBC 12/14/24 12/15/24 Range/Units 19:25 04:50 WBC 6.5 7.3 (3.8-10.6) Thou/mm3 Hgb 13.2 L 12.7 L (13.5-16.0) g/dL Hct 38.9 L 39.0 L (41.0-53.0) % Plt Count 135 L 132 L (140-440) Thou/mm3 BMP 12/14/24 12/15/24 19:25 04:50 Sodium 141 145 Potassium 4.5 4.4 Chloride 104 108 H Carbon Dioxide 28.2 26.9 BUN 31 H 26 H Creatinine 2.1 H 2.0 H Glucose 301 H 131 H D Calcium 8.8 9.2 Liver Function 12/14/24 Range/Units 19:25 Total Bilirubin 0.4 (0.3-1.2) mg/dL AST 43 H (0-34) U/L ALT 62 H (10-49) U/L Alkaline Phosphatase 75 (46-116) U/L Albumin 3.6 (3.4-4.8) gm/dL Quality Measures Quality Measures VTE prophylaxis Advance care planning discussed with:: patient Medications Home Medications and Allergies Home Medications ?Medication ?Instructions ?Recorded ?Confirmed ?Type duloxetine 60 mg capsule,delayed 60 mg PO QDAY 06/14/19 12/15/24 History release aspirin 81 mg tablet,delayed 81 mg PO QDAY 05/25/21 12/15/24 History release gabapentin 300 mg capsule 300 mg PO BID 10/19/21 12/15/24 History tamsulosin 0.4 mg capsule 0.4 mg PO QDAY 10/19/21 12/15/24 History insulin regular human 100 unit/mL See Rx Instructions .Route .COMPLEX 05/12/22 12/15/24 History (3 mL) subcutaneous pen (Novolin R FlexPen) insulin glargine 100 unit/mL (3 30 unit subcut HS 05/30/22 12/15/24 History mL) subcutaneous pen (Basaglar KwikPen U-100 Insulin) pen needle, diabetic 31 gauge x 05/30/22 12/15/24 History 3/16 (BD Ultra-Fine Mini Pen Needle) dapagliflozin propanediol 10 mg 10 mg PO QDAY 01/28/23 12/15/24 History tablet (Farxiga) sodium polystyrene sulfonate 15 15 g PO QDAY 01/28/23 12/15/24 History gram oral powder vitamin B complex-vitamin C-folic 1 tab PO QDAY 01/28/23 12/15/24 History acid 0.8 mg tablet (Nephro-Siobhan) B-complex with vitamin C 1 tab PO QDAY 12/15/24 12/15/24 History atorvastatin 40 mg tablet 40 mg PO DAILY 12/15/24 12/15/24 History levothyroxine 25 mcg tablet 25 mcg PO DAILY 12/15/24 12/15/24 History lisinopril 20 mg tablet 20 mg PO DAILY 12/15/24 12/15/24 History semaglutide 3 mg tablet (Rybelsus) 3 mg PO DAILY 12/15/24 12/15/24 History Allergies Allergy/AdvReac Type Severity Reaction Status Date / Time No Known Allergies Allergy Verified 12/14/24 18:49 Visit Medications Acetaminophen (Acetaminophen 325 Mg Tablet) 650 mg PO Q6H PRN PRN Reason: Fever >100.4 or pain 1-3 Stop: 01/13/25 21:49 Aspirin (Aspirin Ec 81 Mg Tabec) 81 mg PO QDAY TWYLA Stop: 01/14/25 08:59 Last Admin: 12/15/24 09:38 Dose: 81 mg Atorvastatin Calcium (Atorvastatin Calcium 20 Mg Tablet) 40 mg PO [facility] Stop: 01/14/25 20:59 Dextrose (Dextrose 50%-Water Inj 50 Ml Syringe) 25 ml IV Q15MIN PRN PRN Reason: BG 50-70 responsive npo pt Stop: 01/13/25 21:57 Dextrose (Dextrose 50%-Water Inj 50 Ml Syringe) 50 ml IV Q15MIN PRN PRN Reason: BG <50 OR BG <70 & pt unresponsive Stop: 01/13/25 21:57 Docusate Sodium (Docusate Sod 100 Mg Capsule) 100 mg PO QDAY PRN; Protocol PRN Reason: CONSTIPATION Stop: 01/13/25 21:49 Glucagon (Glucagon Inj 1 Mg Vial) 1 mg IM Q15MIN PRN PRN Reason: BG <70, and no IV access Insulin Human Lispro (Insulin Lispro (Admelog) 1 Unit/0.01 Ml Unit) 0 unit SC ACHS TWYLA; Protocol Stop: 01/13/25 22:24 Last Admin: 12/15/24 12:34 Dose: Not Given Ondansetron HCl (Ondansetron Inj 2 Mg/Ml Inj 2 Ml) 4 mg IVP Q6H PRN; Protocol PRN Reason: NAUSEA OR VOMITING Stop: 01/13/25 21:49 Sennosides (Senna Tablet) 1 tab PO QDAY PRN; Protocol PRN Reason: constipation Stop: 01/13/25 21:49 Discontinued Medications Insulin Human Lispro (Insulin Lispro (Admelog) 1 Unit/0.01 Ml Unit) 0 unit SC ACHS TWYLA; Protocol Stop: 01/14/25 07:29 Assessment & Plan Plan Mr Navarrete is a 69 yo gentleman with a hx of multiple CVAs with residual L sided weakness, hx of ICH in 2021, T2DM (A1c 8), HTN, CKD stage IIIb (follows with Mahad) who presented to the ED with diplopia now resolved, admitted for stroke r/o. nephrology consulted for clearance for MRI stroke protocol. Pt is cleared for MRI stroke protocol, (Cr at baseline 2.0) #CKD Stage IIIb Patient history as stated. Creatinine 2.0, EGFR 34, close to patient's baseline. low level of suspicion for HARRY. - Pt is cleared to proceed with MRI stroke protocol - Monitor daily renal function - Avoid nephrotoxins - Renally dose meds as appropriate #Stroke rule out #CVAs with residual deficits Patient is history of CVAs with residual left-sided weakness. #hx of ICH in 2021 #HTN #DM Plan discussed with nephrology attending Dr. Mahad Mathias MD Internal Medicine PGY- Attending Provider Attestation/Addendum Patient seen and examined with resident physician Dr. aMthias. Note reviewed, agree with findings and recommendations. Patient currently seen in medical floor. Patient with CKD stage III. Needs MRI with contrast. Cleared for contrast. Continue with fluids. Thank you Shelbie for allowing me to participate in the care of Mr. Navarrete
--- NOTE | 2024-12-15 15:51 | PC.SS ---
SS follow up note;/ Nephrology Rec's pending, MRI pending. Patient will discharge home with HH. SS notified Team A. Possible discharge within 1-2 days.
[2024-12-15] MEDS: hydrALAZINE INJ 20 MG/ML VIAL 10 MG IVP (20:38)
[2024-12-15] MEDS: GABAPENTIN 300 MG CAPSULE PO (20:38)
[2024-12-15] MEDS: INSULIN LISPRO (AdmeLOG) 1 UNIT/0.01 ML UNIT SC (20:39)
[2024-12-15] MEDS: ATORVASTATIN CALCIUM 20 MG TABLET 40 MG PO (20:40)
--- NOTE | 2024-12-15 20:52 | PD.NEUROPROG ---
Documentation for date of: 12/15/24 Subjective Subjective Interval history: Patient was seen in telemetry today with his family at the bedside, no new symptoms reported; continues to have left-sided weakness as at baseline. No complaints of headache, dizziness or blurred vision Exam - Neurology Vital Signs Temp Pulse Resp BP Pulse Ox O2 Del Method 97.3 F 78 12 167/98 H 96 Room Air 12/15/24 16:00 12/15/24 20:38 12/15/24 16:00 12/15/24 20:38 12/15/24 16:00 12/15/24 16:00 Narrative Exam GENERAL APPEARANCE: Well hydrated, well-nourished in no acute distress. HEENT: Normocephalic, atraumatic, extraocular movements intact. Pupils: Equal reacting to light and accommodation NECK: Supple, no JVD or bruits. CARDIOVASULAR: Heart: S1, S2 heard, regular without S3-S4 or murmur no rubs or gallops. LUNGS/CHEST: Clear to auscultation bilaterally. No rails, rhonchi, or wheezing. Normal inspection. ABDOMEN: Soft, nontender, with normal bowel sounds. No pulsatile masses. No rebound, rigidity, or guarding. Normal inspection and palpation. EXTREMITIES: Normal inspection and palpation. No edema, clubbing or cyanosis. SKIN: Warm and dry without rashes. Normal inspection. MUSCULOSKELETAL: No cervical, thoracic, lumbar or midline bony tenderness. Normal inspection. NEURO: Alert, awake and oriented x3. Cranial nerves: II through XII grossly intact. Speech and language: Normal with no dysarthria or dysphasia. Motor system: Tone and bulk: Normal: Strength: Moves all 4 extremities; No pronator drift noted. Mild residual left hemiparesis noted as at baseline. deep tendon reflexes: 1+ bilaterally symmetrical. Plantar reflex: Downgoing bilaterally. Sensory system: Intact to all modalities of sensation bilaterally. Coordination: Intact to clykwi-ovfk-ynagqv and jpgt-mugt-yxop test bilaterally. No ataxia, no dysmetria, or dysdiadochokinesia noted. No intention tremors noted. Gait: Not assessed. No signs of meningeal irritation noted. PSYCHIATRIC: Normal mood and affect. Objective Labs 12/16/24 06:08 12/15/24 04:50 Labs: Laboratory Results - last 24 hr 12/15/24 04:50 WBC 7.3 RBC 4.08 L Hgb 12.7 L Hct 39.0 L MCV 96 MCH 31.1 MCHC 32.6 RDW Std Deviation 46.5 H Plt Count 132 L Neut % (Auto) 52 Lymph % (Auto) 36 [place] % (Auto) 7 Eos % (Auto) 3 Baso % (Auto) 1 Neut # (Auto) 3.8 Lymph # (Auto) 2.6 [place] # (Auto) 0.5 Eos # (Auto) 0.2 Baso # (Auto) 0.1 Immature Gran # (Auto) 0.02 H Absolute Nucleated RBC 0.00 Immature Gran % 0 Nucleated RBC % 0 PT 10.8 INR 1.0 APTT 26.8 Sodium 145 Potassium 4.4 Chloride 108 H Carbon Dioxide 26.9 Anion Gap 10 BUN 26 H Creatinine 2.0 H Estim Creat Clear Calc 32.3 L eGFR 36 L BUN/Creatinine Ratio 13 Glucose [address] Glu mg/dL 183 H Hemoglobin A1c 8.0 H Calculated Osmolality 295 Calcium 9.2 Phosphorus 4.0 Magnesium 2.4 Triglycerides 75 Cholesterol 133 LDL Cholesterol, Calc 74 HDL Cholesterol 44 Cholesterol/HDL Ratio 3.0 L TSH 3.30 Assessment & Plan Assessment and plan (1) Stroke-like symptoms: Status: Resolved Assessment and plan: Reassurance can to the patient during the negative MRI brain for acute infarction. 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
[2024-12-16] VITALS: BP 138/92; PULSE 90; PULSE 97; RESP 17; TEMP 36.9; O2SAT 95
[2024-12-16 04:00] VITALS: BP 123/72; PULSE 81; PULSE 84; RESP 17; TEMP 36.4; O2SAT 96
[2024-12-16] MEDS: LEVOTHYROXINE SODIUM 25 MCG TABLET PO (05:04)
[2024-12-16 06:00] VITALS: BMI 26.4
[2024-12-16 06:49] LABS: Basophils # (Auto) 0.0 Thou/mm3 (0.0-0.2); Basophils % (Auto) 1 % (0-2.5); Eosinophils # (Auto) 0.2 Thou/mm3 (0.0-0.5); Eosinophils % (Auto) 3 % (0-10); Hematocrit 40.1 % (41.0-53.0); Hemoglobin 13.6 g/dL (13.5-16.0); Immature Granulocytes Auto 0.01 Thou/mm3 (0.00-0.00); Lymphocytes # (Auto) 2.0 Thou/mm3 (1.0-4.8); Lymphocytes % (Auto) 32 % (10-50); Mean Corpuscular HGB Conc 33.9 g/dl (31.0-37.0); Mean Corpuscular Hemoglobin 31.6 pg (25.0-35.0); Mean Corpuscular Volume 93 fL (80-100); Monocytes # (Auto) 0.4 Thou/mm3 (0.0-0.8); Monocytes % (Auto) 7 % (0-12); Neutrophils # (Auto) 3.6 Thou/mm3 (1.8-7.7); Neutrophils % (Auto) 58 % (37-80); Nucleated Red Blood Cell # 0.00 Thou/mm3 (0.00-0.00); Nucleated Red Blood Cell % 0 /100 WBC (0); Platelet Count 141 Thou/mm3 (140-440); RDW Standard Deviation 45.1 fL (35.1-43.9); Red Blood Count 4.31 Miln/mm3 (4.50-5.90); White Blood Count 6.2 Thou/mm3 (3.8-10.6)
[2024-12-16 07:22] LABS: Anion Gap 8 (7-16); BUN/Creatinine Ratio 12 Ratio (12-20); Blood Urea Nitrogen 22 mg/dL (9-23); Calcium 8.9 mg/dL (8.3-10.6); Carbon Dioxide 25.3 mMol/L (20.0-31.0); Chloride 109 mMol/L (98-107); Creatinine (Component) 1.9 mg/dL (0.6-1.3); Estimated Creatinine Clearance 34.0 mL/min (>60); Glucose 132 mg/dL (74-106); Magnesium 2.0 mg/dL (1.6-2.6); Osmolality,Calculated 288 (275-295); Phosphorous 3.2 mg/dL (2.4-5.1); Potassium 4.4 mMol/L (3.4-5.1); Sodium 142 mMol/L (136-145); eGFR 38 See Note
[2024-12-16 08:00] VITALS: BP 122/71; PULSE 70; RESP 18; TEMP 36.3; O2SAT 96
[2024-12-16 08:05] VITALS: BP 122/71; PULSE 70
[2024-12-16] MEDS: GABAPENTIN 300 MG CAPSULE PO (08:05)
[2024-12-16] MEDS: ASPIRIN EC 81 MG TABEC PO (08:05)
--- NOTE | 2024-12-16 08:29 | PD.RESPRO ---
Documentation for date of: 12/16/24 Exam Vital Signs Temp Pulse Resp BP Pulse Ox O2 Del Method 97.3 F 70 18 122/71 96 Room Air 12/16/24 08:00 12/16/24 08:05 12/16/24 08:00 12/16/24 08:05 12/16/24 08:00 12/16/24 08:00 Narrative Exam General: No acute distress, well nourished Eye: PERRL, EOMI, normal conjunctiva, no scleral icterus HENT: Normocephalic, atraumatic, hearing intact to conversation at normal volume, moist oral mucosa Neck: Supple, non-tender, no JVD, no lymphadenopathy Lungs: CTAB, non-labored respirations, symmetric chest rise Heart: S1 and S2 present, no murmurs rubs or gallops. Bilateral lower extremities cold, difficult to assess peripheral pulses. Abdomen: Soft, non-tender, non-distended Musculoskeletal: Normal range of motion and strength Skin: Skin is warm, dry, no rashes or lesions. Psychiatric: Cooperative, appropriate mood and affect Neurologic: Mental status: Orientation: AO x 2 Communication: Patient is cooperative and can follow simple instructions Language: Speech fluent, normal rate and volume, comprehension intact Cranial nerves: CN II: Visual argueta intact CN III: Pupils equal, round, and reactive to light CN III, IV, : No gaze deviation, no nystagmus Horizontal pursuit: intact Vertical pursuit: intact Ptosis: none CN V: Facial sensation to light touch intact bilaterally at the forehead, cheeks, and jaw line CN VII: Face symmetric, no facial droop appreciated CN VIII: Able to hear and respond to conversation at normal volume, intact to finger rub CN IX, X: Palate elevation symmetric, uvula midline CN XI: Head turn and shoulder shrug strong, symmetric bilaterally CN XII: Normal tongue protrusion without deviation, no fasciculations Motor: No abnormal movements or fasciculations Muscle strength: Shoulder abduction: R 5/5 L 5/5 Elbow flexion: R 5/5 L 5/5 Elbow extension: R 5/5 L 5/5 Hip flexion: R 5/5 L 5/5 Hip extension: R 5/5 L 5/5 Sensory: Sensation to light touch decreased in distal left upper and lower extremities Sensation to light touch intact on the right upper and lower extremities. Cerebellum: RUE: No dysmetria (finger to nose) LUE: No dysmetria (finger to nose) Objective Labs 12/16/24 06:08 12/16/24 06:08 Labs: Laboratory Results - last 24 hr 12/16/24 06:08 WBC 6.2 RBC 4.31 L Hgb 13.6 Hct 40.1 L MCV 93 MCH 31.6 MCHC 33.9 RDW Std Deviation 45.1 H Plt Count 141 Neut % (Auto) 58 Lymph % (Auto) 32 [place] % (Auto) 7 Eos % (Auto) 3 Baso % (Auto) 1 Neut # (Auto) 3.6 Lymph # (Auto) 2.0 [place] # (Auto) 0.4 Eos # (Auto) 0.2 Baso # (Auto) 0.0 Immature Gran # (Auto) 0.01 H Absolute Nucleated RBC 0.00 Immature Gran % 0 Nucleated RBC % 0 Sodium 142 Potassium 4.4 Chloride 109 H Carbon Dioxide 25.3 Anion Gap 8 BUN 22 Creatinine 1.9 H Estim Creat Clear Calc 34.0 L eGFR 38 L BUN/Creatinine Ratio 12 Glucose 132 H Calculated Osmolality 288 Calcium 8.9 Phosphorus 3.2 Magnesium 2.0 Quality Measures Quality Measures VTE prophylaxis Assessment & Plan Assessment Current Active Medications: Generic Name Dose Route Start Last Admin Trade Name Freq PRN Reason Stop Dose Admin Acetaminophen 650 mg 12/14/24 21:50 Acetaminophen 325 Mg Tablet PO 01/13/25 21:49 Q6H PRN Fever >100.4 or pain 1-3 Aspirin 81 mg 12/15/24 09:00 12/16/24 08:05 Aspirin Ec 81 Mg Tabec PO 01/14/25 08:59 81 mg QDAY TWYLA Administration Atorvastatin Calcium 40 mg 12/15/24 21:00 12/15/24 20:40 Atorvastatin Calcium 20 Mg Tablet PO 01/14/25 20:59 40 mg HS TWYLA Administration Dextrose 25 ml 12/14/24 21:58 Dextrose 50%-Water Inj 50 Ml Syringe IV 01/13/25 21:57 Q15MIN PRN BG 50-70 responsive npo pt Dextrose 50 ml 12/14/24 21:58 Dextrose 50%-Water Inj 50 Ml Syringe IV 01/13/25 21:57 Q15MIN PRN BG <50 OR BG <70 & pt unresponsive Docusate Sodium 100 mg 12/14/24 21:50 Docusate Sod 100 Mg Capsule PO 01/13/25 21:49 QDAY PRN CONSTIPATION Protocol Gabapentin 300 mg 12/15/24 21:00 12/16/24 08:05 Gabapentin 300 Mg Capsule PO 01/14/25 20:59 300 mg BID TWYLA Administration Glucagon 1 mg 12/14/24 21:58 Glucagon Inj 1 Mg Vial IM Q15MIN PRN BG <70, and no IV access Insulin Human Lispro 0 unit 12/14/24 22:25 12/16/24 07:34 Insulin Lispro (Admelog) 1 Unit/0.01 Ml Unit SC 01/13/25 22:24 Not Given ACHS TWYLA Protocol Levothyroxine Sodium 25 mcg 12/16/24 06:00 12/16/24 05:04 Levothyroxine Sodium 25 Mcg Tablet PO 01/15/25 05:59 25 mcg ACBR TWYLA Administration Lisinopril 20 mg 12/16/24 09:00 12/16/24 08:05 Lisinopril 20 Mg Tablet PO 01/15/25 08:59 20 mg DAILY TWYLA Administration Ondansetron HCl 4 mg 12/14/24 21:50 Ondansetron Inj 2 Mg/Ml Inj 2 Ml IVP 01/13/25 21:49 Q6H PRN NAUSEA OR VOMITING Protocol Sennosides 1 tab 12/14/24 21:50 Senna Tablet PO 01/13/25 21:49 QDAY PRN constipation Protocol Plan Mr. 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 Admitted for stroke workup. 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 Old hemorrhage in the right thalamus and basal ganglia Initial symptoms: B/L blurry vision LKAW: 2 days ago Initial NIHSS: 1 (decreased sensation) Inital BP: 150/71 EKG: NSR, HR 82, QTc 434 Initial glucose: 301 A1C: 8 Lipids: Triglycerides 75, cholesterol 133, LDL 74, HDL 44 TSH: 3.[address] head w/o: Negative for acute hemorrhage, midline shift, mass effect MRI/MRA w/o: Negative for acute stroke. Showed chronic white matter changes. High grade stenosis (80%+) M1 segment of L MCA TTE: Pending DDX: Stroke, TIA, diabetic retinopathy Plan: - Aspirin 81 mg PO daily - Atorvastatin 40 mg PO daily - Diet per OPTICAL COATING TECHNICIAN: Carb consistent, dysphagia 3 - Pending TTE - Consulted neurology, pending recs #Type 2 diabetes mellitus A1C 8, initial glucose 301 Has not seen handbook writer or honing machine set up operator tool in several years Patient is wheelchair-bound Hold home meds Plan: - Sliding scale insulin - ACHS blood glucose fingerstick - Continued home med Gabapentin 300 mg PO BID - Counseled patient on f/u with PCP for DM management. Pt will also need to f/u o/p with ophthalmology and podiatry annually #Hypertension sBP 140-150s / dBP 70-90s Plan: - Continue home lisinopril 20 mg PO daily #Hypothyroidism TSH WNL Plan: - Continue home levothyroxine 25 mcg PO daily Checklist Dispo: Pending TTE Diet: Carb consistent, dysphagia 3 Bowel Reg: Doc/Senna PRN VTE ppx: SCD GI ppx: none Pain mgmt: Tylenol Code status: Full Plan discussed with Dr. Saldana and Dr. Gil Hicks MD PGY1
--- NOTE | 2024-12-16 08:46 | ESPR_ITS ---
Documentation for date of: 12/16/24 Subjective Subjective Interval history: Reason for consult: nephro clearance for MRI stroke protocol History of present illness: Mr Navarrete is a 69 yo gentleman with a hx of multiple CVAs, hx of ICH in 2021, T2DM (A1c 8), HTN, CKD stage IIIb (follows with Mahad) who presented to the ED with bilateral blurry vision. He has had multiple strokes in the past with residual left-sided weakness of the upper and lower extremities. Denies new symptoms. Patient not independent of ADLs He lives at home with his who is his primary industrial court magistrate. He has not seen a warehouse packaging supervisor or senior physician in several years, though he does have a history of diabetes. ROS denies fevers, chills, Shortness of Breath, Nausea, Vomiting, Weakness. ED COURSE: Labs significant for: WBC 6.5, BUN 31, creatinine 2.1, EGFR 34. T. bili 0.4, AST 43, ALT 62, ALP 75. Imaging significant for: CT head negative for acute pathology. PMH: CVA, diabetes, hypertension, CKD IIIb, ICH in 2021, PSH: None SH: Denies alcohol, tobacco, illicit drug use Allergies:?NKDA Medications: Lisinopril, Ozempic, atorvastatin 12/15/2024: Pt presented to the ED with diplopia, CT head negative, admitted for stroke rule out, nephrology consulted to give clearance for MRI stroke protocol in setting of Cr 2.0 (at his baseline). Patient was seen and examined at bedside. He has no focal deficits noted on brief neurological exam, no pronator drift, EOMI, UE strength is 5/5. Per Dr. Tobin, pt is cleared to proceed with MRI stroke protocol 12/16/2024: Patient seen and examined at bedside. pt sitting upright eating breakfast, UE stregth is 5/5, MRI brain done yesterday with high grade stonosis of the M1 segment of MCA and old microvascular white matter changes, Cr 1.9. discharge pending per primary team. ok to d/c from nephology perspective. Exam Vital Signs Temp Pulse Resp BP Pulse Ox O2 Del Method 97.3 F 70 18 122/71 96 Room Air 12/16/24 08:00 12/16/24 08:05 12/16/24 08:00 12/16/24 08:05 12/16/24 08:00 12/16/24 08:00 Narrative Exam GENERAL: no acute distress, AAO x3, comfortably laying in bed eating breakfast, HEENT: Head AT/ NC. Mucous membranes moist. eomi . his voice is ?hoarse. NECK: Supple, no lymphadenopathy, CARDIOVASCULAR: RRR. Normal S1/S2, No m/r/g. trace edema of bilateral LEs. RESPIRATORY: CTAB. No wheezing, rhonchi, crackles. GASTROINTESTINAL: Abdomen soft, non tender no palpable masses. Bowel sounds present MUSCULOSKELETAL:? No cyanosis or edema, no visible joint swelling. NEUROLOGICAL: CN II-XII grossly intact. No focal deficits. no flattening of nasolabial fold noted on exam. Sensation intact, symmetric. PSYCHIATRIC: Awake and alert, not agitated, normal mood and affect. SKIN: No obvious rashes, no jaundice, normal turgor. Objective Labs 12/16/24 06:08 12/16/24 06:08 Labs: Laboratory Results - last 24 hr 12/16/24 06:08 WBC 6.2 RBC 4.31 L Hgb 13.6 Hct 40.1 L MCV 93 MCH 31.6 MCHC 33.9 RDW Std Deviation 45.1 H Plt Count 141 Neut % (Auto) 58 Lymph % (Auto) 32 [place] % (Auto) 7 Eos % (Auto) 3 Baso % (Auto) 1 Neut # (Auto) 3.6 Lymph # (Auto) 2.0 [place] # (Auto) 0.4 Eos # (Auto) 0.2 Baso # (Auto) 0.0 Immature Gran # (Auto) 0.01 H Absolute Nucleated RBC 0.00 Immature Gran % 0 Nucleated RBC % 0 Sodium 142 Potassium 4.4 Chloride 109 H Carbon Dioxide 25.3 Anion Gap 8 BUN 22 Creatinine 1.9 H Estim Creat Clear Calc 34.0 L eGFR 38 L BUN/Creatinine Ratio 12 Glucose 132 H Calculated Osmolality 288 Calcium 8.9 Phosphorus 3.2 Magnesium 2.0 Quality Measures Quality Measures VTE prophylaxis Advance care planning discussed with:: patient Assessment & Plan Assessment Current Active Medications: Generic Name Dose Route Start Last Admin Trade Name Freq PRN Reason Stop Dose Admin Acetaminophen 650 mg 12/14/24 21:50 Acetaminophen 325 Mg Tablet PO 01/13/25 21:49 Q6H PRN Fever >100.4 or pain 1-3 Aspirin 81 mg 12/15/24 09:00 12/16/24 08:05 Aspirin Ec 81 Mg Tabec PO 01/14/25 08:59 81 mg QDAY TWYLA Administration Atorvastatin Calcium 40 mg 12/15/24 21:00 12/15/24 20:40 Atorvastatin Calcium 20 Mg Tablet PO 01/14/25 20:59 40 mg HS TWYLA Administration Dextrose 25 ml 12/14/24 21:58 Dextrose 50%-Water Inj 50 Ml Syringe IV 01/13/25 21:57 Q15MIN PRN BG 50-70 responsive npo pt Dextrose 50 ml 12/14/24 21:58 Dextrose 50%-Water Inj 50 Ml Syringe IV 01/13/25 21:57 Q15MIN PRN BG <50 OR BG <70 & pt unresponsive Docusate Sodium 100 mg 12/14/24 21:50 Docusate Sod 100 Mg Capsule PO 01/13/25 21:49 QDAY PRN CONSTIPATION Protocol Gabapentin 300 mg 12/15/24 21:00 12/16/24 08:05 Gabapentin 300 Mg Capsule PO 01/14/25 20:59 300 mg BID TWYLA Administration Glucagon 1 mg 12/14/24 21:58 Glucagon Inj 1 Mg Vial IM Q15MIN PRN BG <70, and no IV access Insulin Human Lispro 0 unit 12/14/24 22:25 12/16/24 07:34 Insulin Lispro (Admelog) 1 Unit/0.01 Ml Unit SC 01/13/25 22:24 Not Given ACHS TWYLA Protocol Levothyroxine Sodium 25 mcg 12/16/24 06:00 12/16/24 05:04 Levothyroxine Sodium 25 Mcg Tablet PO 01/15/25 05:59 25 mcg ACBR TWYLA Administration Lisinopril 20 mg 12/16/24 09:00 12/16/24 08:05 Lisinopril 20 Mg Tablet PO 01/15/25 08:59 20 mg DAILY TWYLA Administration Ondansetron HCl 4 mg 12/14/24 21:50 Ondansetron Inj 2 Mg/Ml Inj 2 Ml IVP 01/13/25 21:49 Q6H PRN NAUSEA OR VOMITING Protocol Sennosides 1 tab 12/14/24 21:50 Senna Tablet PO 01/13/25 21:49 QDAY PRN constipation Protocol Plan Mr Navarrete is a 69 yo gentleman with a hx of multiple CVAs with residual L sided weakness, hx of ICH in 2021, T2DM (A1c 8), HTN, CKD stage IIIb (follows with Mahad) who presented to the ED with diplopia now resolved, admitted for stroke r/o. nephrology consulted for clearance for MRI stroke protocol.pt is s/p MRI stroke protocol wo significant stenosis of M1 segment of MCA, Cr 1.9 today, stable. discharge per primary team pt states that he lives at home and his is his primary caregiver. #CKD Stage IIIb Patient history as stated. Creatinine 2.0, EGFR 34, close to patient's baseline. low level of suspicion for HARRY. - s/p MRI stroke protocol, Cr 1.9 today (stable) - continue gentle IV fluids - Monitor daily renal function - Avoid nephrotoxins - Renally dose meds as appropriate - ok to discharge per primary team, cleared from nephrology perspective. #Stroke rule out #CVAs with residual deficits Patient is history of CVAs with residual left-sided weakness. MRI brain with high grade stenosis of M1 segment of MCA, image limited 2/2 pt motion artifact, and microvascular white matter changes. #hx of ICH in 2021 #HTN #DM - management per primary team Plan discussed with nephrology attending Dr. Mahad Mathias MD Internal Medicine PGY- Attending Provider Attestation/Addendum Patient seen and examined with resident physician Dr. Mathias. Note reviewed, agree with findings and recommendations. Patient currently seen in medical floor. Patient with CKD stage III. Needs MRI with contrast. Cleared for contrast. Continue with fluids. MRI showed no stroke. Creatinine stable at 1.9. Renal soni is stable for discharge. He is going to follow-up with me in my office. Thank you Shelbie for allowing me to participate in the care of Mr. Navarrete
--- NOTE | 2024-12-16 10:15 | PC.NURSE ---
Addendum entered by Pooja Manrique RN 12/16/24 10:17: therefore dc is expected to be delayed. Original Note: Spoke to MD Saldana in regards to HH pt set up prior to dc pt. Per pysical therapy reccomendations. pt requires max assist.
--- NOTE | 2024-12-16 10:57 | ESDS_ITS ---
<Statement entered by Shelbie Cordero MD - 12/19/24 15:14> I reviewed above note and agree with findings and plans. I have also personally examined the patient with medicine team and went over assessment and plan with medical team including seo intern and resident physician. <Statement entered by Ty Baez MD - 12/16/24 16:57> Patient was examined and case was reviewed with team including attending physician. Note reviewed, I agree with most of its contents and agree with the patient's care as documented by Dr. Fabiola Baez MD PGY-2 Planned Discharge Date 12/16/24 DS: Providers Provider Date of admission: 12/14/24 21:50 Primary care physician: Leesa Leyva NP Admitting Provider: Alfredo Lopez MD Attending Provider on Admission: Shelbie Cordero MD Consults: 12/14/24 21:58 Referral Physical Therapy Routine Comment: Physician Instructions: Referral Speech Therapy Routine Comment: 12/15/24 10:53 Consult to Neurology / Tele-Neurology Stat Comment: stroke r/o Consulting Provider: Armen Wing 12/15/24 13:54 Consult to Nephrology Stat Comment: Consulting Provider: Marjorie Tobin Attending Provider on DC: Dr. Shelbie Cordero Discharging Provider: RESIDENT Kelsea DS: Diagnosis Problem List Completed Was Problem List Reviewed/Reconciled?: Yes Hospital Course Hospital Course Hospital course: Hospital Course Mr. Navarrete is a 69 y/o male with PMH of CVA with residual left sided UE and LE sensory loss, HTN, DM, HLD, CKD who presented with blurry vision x2 days. Inital BP and blood glucose in ED WNL. Admitted for stroke workup. Patient's physical exam showed chronic sensory deficit and mild left hemiparesis from previous strokes. No visual deficits appreciated. Physical exam showed no focal neuro deficits. Given one dose of hydralazine IV 10 mg and extra dose of Lisinopril PO for elevated BP with sBP 160s. Otherwise, BP controlled. CT head negative for acute hemorrhage, midline shift, mass effect. MRI/MRA w/o contrast showed no acute hemorrhage. 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 Throughout hospital course, patient's blurry vision improved. Started Plavix 75 mg PO daily x 21 days. Continued home meds of aspirin 81 mg daily, atorvastatin 40 mg daily, levothyroxine 25 mcg PO daily, lisinopril 20 mg PO daily, and gabapentin 300 mg PO BID. Patient stable and medically cleared for discharge. 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 Should your symptoms recur or worsen patient is instructed to return to the ER. Marisol Hicks MD PGY1 Time Spent with Patient Time attestation: Total time spent providing and/or coordinating discharge services: Time spent: Greater than 30 minutes Home Health Home Health Referral Orders: 12/16/24 10:54 Home Health Referral Routine Reason For Exam: PT Home-Bound The patient must either because of illness or injury, need the aid of supportive devices such as crutches, canes, wheelchairs, and walkers; the use of special transportation; or the assistance of another person in order to leave their place of residence; OR have a condition such that leaving his or her home is medically contraindicated. In addition, the patient also meets the following criteria: patient is normally unable to leave the home and leaving home requires considerable taxing effort. Addendum to Home Health Certification Practitioner's Certification: I certify that the patient has been under my care in the hospital and the care of attending physician (see below). We had a [id number] encounter on (see date below). My clinical findings indicate that the patient is home bound per the above criteria and the Home Health Services noted in these orders are medically necessary. The primary reason for the [id number] encounter is related to the fact that the patient requires home health services. Date Certifying [id number] Physician Encounter: 12/14/24 Physician's Name who will Assume Oversight for Services: Leesa Leyva Physician's Phone No.who will Assume Oversight for Service: AUTO TOP MECHANIC - Community Resources: No PT to Evaluate: Yes PT to evaluate and provide a treatmnet plan to increase patient's mobility and strength. Wound Care: No IV Therapy: No RN Safety Evaluation: Yes RN to evaluate and create a plan of care that will produce positive outcomes. Palliative Treatment: No Palliative treatment and evaluate the need for hospice. Home Health Aide - Personal Care: No Home Health Aide to assist with any ADL's. Exam Vital Signs Temp Pulse Resp BP Pulse Ox O2 Del Method 97.3 F 70 18 122/71 96 Room Air 12/16/24 08:00 12/16/24 08:05 12/16/24 08:00 12/16/24 08:05 12/16/24 08:00 12/16/24 08:00 Narrative Exam General: No acute distress, well nourished Eye: PERRL, EOMI, normal conjunctiva, no scleral icterus HENT: Normocephalic, atraumatic, hearing intact to conversation at normal volume, moist oral mucosa Neck: Supple, non-tender, no JVD, no lymphadenopathy Lungs: CTAB, non-labored respirations, symmetric chest rise Heart: S1 and S2 present, no murmurs rubs or gallops. Bilateral lower extremit ies cold, difficult to assess peripheral pulses. Abdomen: Soft, non-tender, non-distended Musculoskeletal: Normal range of motion and strength Skin: Skin is warm, dry, no rashes or lesions. Psychiatric: Cooperative, appropriate mood and affect Neurologic: Mental status: Orientation: AO x 2 Communication: Patient is cooperative and can follow simple instructions Language: Speech fluent, normal rate and volume, comprehension intact Cranial nerves: CN II: Visual argueta intact CN III: Pupils equal, round, and reactive to light CN III, IV, : No gaze deviation, no nystagmus Horizontal pursuit: intact Vertical pursuit: intact Ptosis: none CN V: Facial sensation to light touch intact bilaterally at the forehead, cheeks, and jaw line CN VII: Face symmetric, no facial droop appreciated CN VIII: Able to hear and respond to conversation at normal volume, intact to finger rub CN IX, X: Palate elevation symmetric, uvula midline CN XI: Head turn and shoulder shrug strong, symmetric bilaterally CN XII: Normal tongue protrusion without deviation, no fasciculations Motor: No abnormal movements or fasciculations Muscle strength: Shoulder abduction: R 5/5 L 5/5 Elbow flexion: R 5/5 L 5/5 Elbow extension: R 5/5 L 5/5 Hip flexion: R 5/5 L 5/5 Hip extension: R 5/5 L 5/5 Sensory: Sensation to light touch decreased in distal left upper and lower extremities Sensation to light touch intact on the right upper and lower extremities. Cerebellum: RUE: No dysmetria (finger to nose) LUE: No dysmetria (finger to nose) Discharge Plan Plan Patient Disposition: Home w/HOME HEALTH Care Plan Goals: Follow-up with primary care physician within 1 week of discharge Follow-up with neurology within 2 weeks of discharge Please take plavix for 21 days along with aspirin, when you finish plavix only take aspirin indefinetely. Please take all your medications as prescribed. Should your symptoms recur or worsen patient is instructed to return to the ER. Prescriptions/Referrals Prescriptions/Med Rec: New clopidogrel [Plavix] 75 mg tablet 75 mg PO QDAY Qty: 21 0RF Continued duloxetine 60 mg Capsule,Delayed Release(Dr/Ec) 60 mg PO QDAY aspirin 81 mg Tablet,Delayed Release (Dr/Ec) 81 mg PO QDAY tamsulosin 0.4 mg capsule 0.4 mg PO QDAY gabapentin 300 mg capsule 300 mg PO BID Nephro-Siobhan 0.8 mg tablet 1 tab PO QDAY Patient Comments: TOME MARINA TABLETA TODOS LOS D dapagliflozin propanediol [Farxiga] 10 mg tablet 10 mg PO QDAY sodium polystyrene sulfonate 15 gram Powder 15 g PO QDAY Patient Comments: TOME 15 GM POR V A ORAL TODOS LOS D ondansetron 4 mg tablet,disintegrating 4 mg PO Q8H PRN (Reason: nausea and vomiting) Qty: 10 0RF Novolin R FlexPen 100 unit/mL (3 mL) Insulin Pen See Rx Instructions .ROUTE .COMPLEX Rx Instructions: per sliding scale. insulin glargine [Basaglar KwikPen U-100 Insulin] 100 unit/mL (3 mL) insulin pen 30 unit SUBCUT HS Patient Comments: INJECTE 30 UNIDADES SUBCUTANEOUS DIARIO AL [employer]STAR (DME) pen needle, diabetic [BD Ultra-Fine Mini Pen Needle] 31 gauge x 3/16 needle Patient Comments: USE 3 TIMES A DAY atorvastatin 40 mg tablet 40 mg PO DAILY Patient Comments: TOME 1 TABLETA POR V A ORAL TODOS LOS D lisinopril 20 mg tablet 20 mg PO DAILY Patient Comments: TOME 1 TABLETA POR V A ORAL TODOS LOS D B-complex with vitamin C Tablet 1 tab PO QDAY levothyroxine 25 mcg tablet 25 mcg PO DAILY Patient Comments: TAKE 1 TABLET BY MOUTH IN THE MORNING Rybelsus 3 mg tablet 3 mg PO DAILY Patient Comments: TOME 1 TABLETA POR V A ORAL TODOS LOS D Referrals: Leesa Leyva, HOSPITAL UNIT COORDINATOR [Primary Care Provider] - Patient/Caregiver Discharge Instructions Education Materials: Stroke and Heart Disease, Symptoms of Stroke, Stroke: Taking Medicines, Stroke Mood Swings Depression, Stroke: Resources and Support, Stroke: Self-Care, Stroke: Tips for Swallowing, Stroke Regaining Movement, Stroke Swallowing Problems Caregiving, Stroke Self Care After, Stroke Prevent Another Caregiver, Stroke Prevention Eating Healthy, Stroke Prevention Activity, Stroke Prevent Live W Atrial Fib Print Language: Cymraes Stand Alone Forms: Julianna Award Info., Patient Portal Info Letter, Work/Release Restrictions Discharge Order Discharge Orders: Discharge (Routine); Ordered 12/16/24 Ordered By: Ty Baez Quality Discharge Quality Measures VTE prophylaxis
[2024-12-16 12:00] VITALS: BP 101/63; PULSE 67; PULSE 75; RESP 18; TEMP 36.3; O2SAT 94
--- NOTE | 2024-12-16 12:05 | PC.SS ---
SS follow up note; Patient is discharging today. Patient's unable to transport patient home, SS received a call from Patient's nurse Kayla and she informed SS that patient needed Transportation home. [facility] SS set up transportation with [facility]. Only time available to transport patient is 6:30PM. SS notified patient's nurse Kayla.
--- NOTE | 2024-12-16 15:45 | PC.NURSE ---
MD garcia aware of pts dc per neurologist f/u in 2-3 wks.
[2024-12-16 16:00] VITALS: BP 137/82; PULSE 69; PULSE 75; RESP 19; TEMP 36.5; O2SAT 95
[2024-12-16] MEDS: INSULIN LISPRO (AdmeLOG) 1 UNIT/0.01 ML UNIT SC (16:39)
--- NOTE | 2024-12-16 23:41 | PD.VPROG1 ---
Telemedicine visit statement This visit was conducted with the use of phone was obtained on 12/16/24. Documentation for date of: 12/16/24 Subjective Subjective Interval history: Patient is in MedSurg, no new symptoms reported continue to have residual left hemiparesis and paresthesia. Denies any headache or dizziness. Virtual exam Vital Signs Temp Pulse Resp BP Pulse Ox O2 Del Method 97.7 F 75 19 137/82 H 95 Room Air 12/16/24 16:00 12/16/24 16:00 12/16/24 16:00 12/16/24 16:00 12/16/24 16:00 12/16/24 16:00 Objective Labs 12/16/24 06:08 12/16/24 06:08 Labs: Laboratory Results - last 24 hr 12/16/24 06:08 WBC 6.2 RBC 4.31 L Hgb 13.6 Hct 40.1 L MCV 93 MCH 31.6 MCHC 33.9 RDW Std Deviation 45.1 H Plt Count 141 Neut % (Auto) 58 Lymph % (Auto) 32 [place] % (Auto) 7 Eos % (Auto) 3 Baso % (Auto) 1 Neut # (Auto) 3.6 Lymph # (Auto) 2.0 [place] # (Auto) 0.4 Eos # (Auto) 0.2 Baso # (Auto) 0.0 Immature Gran # (Auto) 0.01 H Absolute Nucleated RBC 0.00 Immature Gran % 0 Nucleated RBC % 0 Sodium 142 Potassium 4.4 Chloride 109 H Carbon Dioxide 25.3 Anion Gap 8 BUN 22 Creatinine 1.9 H Estim Creat Clear Calc 34.0 L eGFR 38 L BUN/Creatinine Ratio 12 Glucose 132 H Calculated Osmolality 288 Calcium 8.9 Phosphorus 3.2 Magnesium 2.0 Assessment & Plan Assessment (1) Stroke-like symptoms: Status: Resolved Assessment and plan: Reassurance can to the patient during the negative MRI brain for acute infarction. It showed prominent chronic white matter change, old hemorrhage in the right thalamus and basal ganglia Continue with aspirin with close monitoring for bleeding. 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
--- NOTE | 2024-12-17 12:40 | PC.CC ---
Michael accepted and booked, SOC pending
== END 2024-12-16 18:47 | disposition home health service (06) ==
LOC: SERX 21:51 → SERHOLD 22:16 → S2NX 12-15 07:47 → SERHOLD 12-15 12:04 → S2NX 12-15 12:04 → S3NX 12-15 21:24
PROVIDERS: Admitting Provider Student in an Organized Health Care Education/Training Program; Emergency Provider Emergency Medicine; PCP Nurse Practitioner Family; Visit Provider Internal Medicine
DX: G45.9 Transient cerebral ischemic attack, unspecified (principal); E03.9 Hypothyroidism, unspecified; I66.02 Occlusion and stenosis of left middle cerebral artery; I69.354 Hemiplegia and hemiparesis following cerebral infarction affecting left non-dominant side; E11.22 Type 2 diabetes mellitus with diabetic chronic kidney disease; E78.5 Hyperlipidemia, unspecified; I12.9 Hypertensive chronic kidney disease with stage 1 through stage 4 chronic kidney disease, or unspecified chronic kidney disease; N18.32 Chronic kidney disease, stage 3b; I45.2 Bifascicular block
CPT/HCPCS: 36415; 70450; 70544; 80048; 80053; 80061; 83036; 83735; 84100; 84443; 85025; 85610; 85730; 92610; 93005; 93306; 96374; 97162; 99284; G0378; J0360; J1815; A9270